=== PATIENT | female | born 1960 | race Caucasian/White ===

== ENCOUNTER 2019-12-07 00:23 | Outpatient (CLI) | payer BC, SELFPAY ==
[2019-12-07 18:55] LABS: SARS-CoV-2 RNA PCR Negative
== END 2019-12-07 00:24 | disposition home or self-care (01) ==
LOC: ANHCOVIDDT 00:23
PROVIDERS: PCP Family Medicine; Visit Provider Internal Medicine Gastroenterology
DX: Z01.818 Encounter for other preprocedural examination (principal); Z11.59 Encounter for screening for other viral diseases
CPT/HCPCS: 87635; C9803; U0003

== ENCOUNTER 2019-12-09 00:46 | Day surgery (SDC) | payer BC, SELFPAY ==
[2019-12-01 14:03] VITALS: BMI 31.1
[2019-12-09 07:36] VITALS: BP 130/82; PULSE 86; RESP 16; TEMP 36.8; O2SAT 100; BMI 31.1
--- NOTE | 2019-12-09 07:40 | WPDANESEPPF ---
Anes - Initial Pre Proc Eval Procedure: Operation Date: 12/09/19 08:30 Proposed Procedures p Screening Colonoscopy - Adelso Perdomo MD Date/Time: 12/09/19 07:40 Surgeon: Adelso Perdomo MD Pre Op Diagnosis: Neoplasm Screening Patient Data Age: 59 Gender: F Height: 1.65 m Weight: 85 kg Last Vital Signs Temp 36.8 C 12/09/19 07:36 Pulse 86 12/09/19 07:36 Resp 16 12/09/19 07:36 BP 130/82 12/09/19 07:36 Pulse Ox 100 12/09/19 07:36 Allergies Allergy/AdvReac Type Severity Reaction Status Date / Time No Known Allergies Allergy Verified 12/09/19 07:35 Home Medications Medication Instructions Recorded Confirmed Type escitalopram oxalate 5 mg PO DAILY 12/01/19 12/01/19 History hydrochlorothiazide 12.5 mg PO DAILY PRN 12/01/19 12/01/19 History levothyroxine 112 mcg PO DAILY 12/01/19 12/01/19 History vitamin B complex [B 1 tablet PO DAILY 12/01/19 12/01/19 History Complex-Vitamin B12] Patient hx anesthesia problems: none Family hx anesthesia problems: none PMFSH Past Medical History Medical History (Updated 12/09/19 @ 07:42 by Medhat Dsouza MD) Anemia HTN (hypertension) Hypothyroidism Obesity Family History Family History (Updated 09/20/16 @ 23:56 by DOCTOR UNKNOWN) Father Hypertension Family history of chronic obstructive pulmonary disease Family history of diabetes mellitus in first degree relative Family history of lung cancer, Onset Age: 78 Family history of coronary artery disease Patient's father is Mother Hypertension Other Diabetes mellitus Family history of Alzheimer's disease Family history of anemia Family history of arthritis Family history of cardiovascular disease Family history of migraine headaches Family history of thyroid disease Social History Social History Smoking status: Never smoker Alcohol intake: never Anes - Eval Final PreProcedure Day of Procedure 12/09/19 07:40 Patient weight: obese Heart: regular rate and rhythm Lungs: clear to auscultation and normal air movement Airway: Mallampati scale class II Neurological: alert and oriented Last oral intake: >/= 8 hours ASA classification: II Emergent: no Anesthetic plan: proceed Anesthesia type and monitoring: general GIVS Informed Consent: The patient's anesthetic plan and its attendant risks and benefits were discussed with the patient/family/POA. Questions were solicited and answers provided to the satisfaction of the patient/family/POA.
[2019-12-09] MEDS: LACTATED RINGERS 1,000 ML 150 ML IV CONT (07:50)
--- NOTE | 2019-12-09 07:56 | PM.HPGS ---
History of Present Illness History of Present Illness Consent: Risks, benefits, and alternatives have been discussed and questions answered. Patient agrees to proceed with procedure. Chief complaint: Neoplasm Screening Narrative: Radha Gray is a 59 year old W female referred for screening colonoscopy. Patient is asymptomatic. No family history of colo rectal cancer. Patient did have a colonoscopy over 88 years ago which was normal. [facility] Past Medical History Medical History Anemia HTN (hypertension) Hypothyroidism Obesity Surgical History Surgical History (Updated 12/09/19 @ 07:58 by Adelso Perdomo MD) S/P right rotator cuff repair Status post arthroscopy of right knee Status post hysterectomy Status post unilateral salpingo-oophorectomy Family History Family History Father Hypertension Family history of chronic obstructive pulmonary disease Family history of diabetes mellitus in first degree relative Family history of lung cancer, Onset Age: 78 Family history of coronary artery disease Patient's father is Mother Hypertension Other Diabetes mellitus Family history of Alzheimer's disease Family history of anemia Family history of arthritis Family history of cardiovascular disease Family history of migraine headaches Family history of thyroid disease Social History Social History Smoking status: Never smoker Alcohol intake: never Meds Home Medications and Allergies Home Medications Medication Instructions Recorded Confirmed Type escitalopram oxalate 5 mg PO DAILY 12/01/19 12/01/19 History hydrochlorothiazide 12.5 mg PO DAILY PRN 12/01/19 12/01/19 History levothyroxine 112 mcg PO DAILY 12/01/19 12/01/19 History vitamin B complex [B 1 tablet PO DAILY 12/01/19 12/01/19 History Complex-Vitamin B12] Allergies Allergy/AdvReac Type Severity Reaction Status Date / Time No Known Allergies Allergy Verified 12/09/19 07:35 Vital Signs Vital Signs - 24 hr 12/09/19 07:36 Temperature 36.8 C Pulse Rate 86 Respiratory Rate 16 Blood Pressure 130/82 Pulse Oximetry 100 Exam Const: Orientation/consciousness: patient oriented x3 Resp: Auscultation: clear to auscultation bilaterally Cardio: Rate: regular rate Rhythm: regular rhythm Heart sounds: no murmurs GI: GI Palp: Yes Soft to palpation, No Tenderness to palpation present (GI), Yes No hepatosplenomegaly present and No Palpable mass present Auscultation: normal bowel sounds Neuro: General: patient oriented x3 and no focal motor deficits Extrem: General: no pedal edema Assessment and Plan Additional Plan screening colonoscopy in average risk patient
[2019-12-09] MEDS: SIMETHICONE ORAL SUSPENSION 20 MG/0.3 ML 30 ML BOTTLE 0.6 ML IRRIGATION (08:43)
[2019-12-09 08:52] VITALS: BP 116/72; PULSE 86; RESP 19; O2SAT 98
[2019-12-09 09:02] VITALS: BP 118/76; PULSE 75; RESP 19; O2SAT 98
[2019-12-09 09:08] VITALS: BP 121/80; PULSE 72; RESP 19; O2SAT 98
== END 2019-12-09 09:28 | disposition home or self-care (01) ==
PROVIDERS: PCP Family Medicine; Visit Provider Internal Medicine Gastroenterology
PROC: 0DJD8ZZ Inspection of Lower Intestinal Tract, Via Natural or Artificial Opening Endoscopic (ICD-10-PCS; CPT 45378; principal; 2019-12-09 08:30)
DX: Z12.11 Encounter for screening for malignant neoplasm of colon (principal); K64.8 Other hemorrhoids; I10 Essential (primary) hypertension; E03.9 Hypothyroidism, unspecified; E66.9 Obesity, unspecified; Z68.31 Body mass index [BMI] 31.0-31.9, adult
CPT/HCPCS: G0121; J2704; J7120

== ENCOUNTER → 2020-02-29 07:25 | Outpatient (CLI) | payer BC, SELFPAY ==
--- NOTE | ~2020-02-29 | MM_ITS ---
EXAMINATION: MM screening warren BI w juan HISTORY: Screening mammogram TECHNIQUE: Craniocaudal and mediolateral oblique 3-D tomosynthesis images were obtained and synthetic 2-D images were generated. CAD analysis was submitted and interpreted. COMPARISON: 01/06/2019 bilateral diagnostic digital mammogram 06/17/2018 diagnostic right digital mammogram 05/28/2018, 02/19/2017, 02/06/2016 bilateral digital screening mammogram examinations BREAST PARENCHYMAL COMPOSITION: FINDINGS: Approximately 4.5 x 7 x 9.5 mm mass is noted in the upper inner quadrant of the right breas t at mid depth. Diagnostic right mammogram and right breast ultrasound examination are recommended. There is asymmetry in the upper outer left breast. Diagnostic left mammogram is recommended. Otherwise there is no evidence of suspicious mass, calcification, or architectural distortion to sugg est malignancy in either breast. There has been no suspicious interval change. IMPRESSION: 1. 9.5 mm mass in upper inner quadrant right breast at mid depth 2. Diagnostic bilateral mammogram and right breast ultrasound examination are recommended. BI-RADS Category 0: Incomplete: Needs additional imaging evaluation. Reviewed, dictated and finalized at location A. IMPRESSION: 1. 9.5 mm mass in upper inner quadrant right breast at mid depth 2. Diagnostic bilateral mammogram and right breast ultrasound examination are r ecommended. BI-RADS Category 0: Incomplete: Needs additional imaging evaluation.
== END ==
PROVIDERS: PCP Family Medicine; Visit Provider Family Medicine
DX: Z12.31 Encounter for screening mammogram for malignant neoplasm of breast (principal); R92.8 Other abnormal and inconclusive findings on diagnostic imaging of breast
CPT/HCPCS: 77063; 77067

== ENCOUNTER → 2020-03-22 07:53 | Outpatient (CLI) | payer BC, SELFPAY ==
--- NOTE | ~2020-03-22 | MMUS_ITS ---
EXAMINATION: MM diagnostic mammo BI, US breast BI complete HISTORY: Follow-up bilateral breast masses TECHNIQUE: Additional 3-D tomosynthesis images of the breasts were performed and synthetic 2-D images were generated. CAD analysis was submitted and interpreted. High resolution bilateral breast ultraso und was performed. COMPARISON: Comparison to multiple prior studies sequentially, with oldest reviewed study dated 11/2016. BREAST PARENCHYMAL COMPOSITION: The breasts are heterogenously dense, which may obscure small masses. FINDINGS: MAMMOGRAPHIC FINDINGS: There is a benign-appearing 1 cm mass in the upper inner quadrant of the right breast, middle third. There are multiple small masses scattered throughout the left breast which are obscured by fibrogland ular tissue. ULTRASOUND: Complete bilateral breast ultrasound: At 1:00, 6 cm from the nipple there is a cluster of microcysts measuring up to 1 cm in aggregate. This corresponds to the mammographic finding. In the left breast t here are multiple simple and complicated cysts including a cluster of microcysts at 3:00, 6 cm from t he nipple measuring 6 mm in aggregate. There are no suspicious sonographic abnormalities to suggest m alignancy. IMPRESSION: 1. No evidence for malignancy in either breast. Benign findings. 2. Routine yearly screening mammogram and regular clinical breast examination are recommended. BI-RADS Category 2: Benign finding(s). Reviewed, dictated and finalized at location A. IMPRESSION: 1. No evidence for malignancy in either breast. Benign findings. 2. Routine yearly screening mammogram and regular clinical breast examination a re recommended. BI-RADS Category 2: Benign finding(s).
== END ==
PROVIDERS: PCP Family Medicine; Visit Provider Family Medicine
DX: N63.10 Unspecified lump in the right breast, unspecified quadrant (principal); R92.2 Inconclusive mammogram
CPT/HCPCS: 76641; 77066

== ENCOUNTER → 2021-03-16 08:49 | Outpatient (CLI) | payer BC, SELFPAY ==
--- NOTE | ~2021-03-16 | MMUS_ITS ---
EXAMINATION: MM diagnostic warren BI w juan, US breast RT complete, US breast LT limited HISTORY: Palpable breast lumps TECHNIQUE: Additional 3-D tomosynthesis images of the breasts were performed and synthetic 2-D images were generated. CAD analysis was submitted and interpreted. High resolution complete right and limit ed left breast ultrasound was performed. COMPARISON: Comparison to multiple prior studies sequentially, with oldest reviewed study dated 11/2016. BREAST PARENCHYMAL COMPOSITION: Breast composed of scattered areas of fibroglandular density. FINDINGS: MAMMOGRAPHIC FINDINGS: The breasts are stable. No new masses, calcifications or architectural distortion in either breast to suggest malignancy. Bilateral breast asymmetries are unchanged. ULTRASOUND: Complete right and limited left breast ultrasound: Normal heterogeneous echotexture without focal lila id or cystic mass. IMPRESSION: 1. No evidence for malignancy in either breast. 2. Routine yearly screening mammogram and regular clinical breast examination are recommended. BI-RADS Category 1: Negative Reviewed, dictated and finalized at location A. IMPRESSION: 1. No evidence for malignancy in either breast. 2. Routine yearly screening mammogram and regular clinical breast examination a re recommended. BI-RADS Category 1: Negative IMPRESSION: 1. No evidence for malignancy in either breast. 2. Routine yearly screening mammogram and regular clinical breast examination a re recommended. BI-RADS Category 1: Negative
== END ==
PROVIDERS: PCP Family Medicine; Visit Provider Family Medicine
DX: N63.10 Unspecified lump in the right breast, unspecified quadrant (principal); N63.20 Unspecified lump in the left breast, unspecified quadrant
CPT/HCPCS: 76641; 76642; 77062; 77066; G0279

== ENCOUNTER 2021-10-05 18:12 | Emergency (ER) | payer BC, SELFPAY ==
[2021-10-05 18:19] VITALS: BP 127/78; PULSE 88; RESP 16; TEMP 37.1; O2SAT 98
--- NOTE | 2021-10-05 18:54 | ED.EAR ---
HPI - Ear Problem General Chief complaint: Ear Stated complaint: Loss of hearing in right ear Time Seen by Provider: 10/05/21 18:54 Source: patient Mode of arrival: ambulatory Limitations: no limitations History of Present Illness HPI Narrative: 60-year-old female presents with complaint of pain and decreased hearing to right ear. Reports that she has had sinus issues for the past week. Did see her PCP and is taking Benadryl and Augmentin. Was told at that time that right ear looks slightly infected. States over the last 2 days pain has been worse and intermittently dizzy. PCP was going to prescribe an oral steroid but patient needed to come into the office and patient started new job and did not want to miss work. Denies fever chills. All systems reviewed and negative except as noted above. Related Data Home Medications Medication Instructions Recorded Confirmed vitamin B complex [B 1 tablet PO DAILY 12/01/19 10/05/21 Complex-Vitamin B12] amoxicillin-pot clavulanate 1 tablet PO BID 10/05/21 10/05/21 celecoxib 100 mg PO DIRECTED 10/05/21 10/05/21 fluticasone propionate 50 mcg INTRANASAL BID 10/05/21 10/05/21 gabapentin 100 mg PO DIRECTED 10/05/21 10/05/21 lorazepam 0.5 mg PO DIRECTED 10/05/21 10/05/21 Allergies Allergy/AdvReac Type Severity Reaction Status Date / Time No Known Allergies Allergy Verified 10/05/21 18:28 Review of Systems Review of Systems: CONSTITUTIONAL: Denies fever, chills, or sweats. EYES: Denies visual changes, redness, or discharge. ENT: Denies rhinorrhea, congestion, sore throat. Reports right ear pain and decreased hearing. CARDIOVASCULAR: Denies chest pain, palpitations, or edema. RESPIRATORY: Denies cough or dyspnea. GASTROINTESTINAL: Denies abdominal pain, nausea, vomiting, or diarrhea. GENITOURINARY: Denies dysuria or hematuria. SKIN: Denies rash or itching. MUSCULOSKELETAL: Denies back pain, joint pain, or myalgia. NEUROLOGIC: Denies headache, numbness, or weakness. PSYCHIATRIC: Denies anxiety or depression. All other systems reviewed are negative, except as documented in HPI. [facility] Past Medical History Medical History (Updated 10/05/21 @ 19:04 by Senia Valderrama NP) Anemia HTN (hypertension) Hypothyroidism Obesity Surgical History Surgical History (Updated 12/09/19 @ 07:58 by Adelso PerdomoMD) S/P right rotator cuff repair Status post arthroscopy of right knee Status post hysterectomy Status post unilateral salpingo-oophorectomy Family History Family History Father Hypertension Family history of chronic obstructive pulmonary disease Family history of diabetes mellitus in first degree relative Family history of lung cancer, Onset Age: 78 Family history of coronary artery disease Patient's father is Mother Hypertension Other Diabetes mellitus Family history of Alzheimer's disease Family history of anemia Family history of arthritis Family history of cardiovascular disease Family history of migraine headaches Family history of thyroid disease Social History Social History Smoking status: Never smoker Alcohol intake: never Comments At time of signature, agree with nursing past medical, surgical, social and family history. There is no relevant family history pertinent to the presenting complaint. Exam Narrative: GENERAL: This is a well-nourished, well-developed patient, in no apparent distress. HEAD: normocephalic, atraumatic. EYES: PERRL. Sclera clear/white. Vision is grossly intact. EARS: External ears normal, auditory canals clear and without drainage. Left TM is normal. There is yellow serous fluid to right TM with mild erythema. NOSE: External nose normal with no obvious nasal discharge, nares without redness, no rhinorrhea. THROAT: Mucous membranes moist, posterior pha
== END 2021-10-05 19:06 | disposition home or self-care (01) ==
PROVIDERS: Emergency Provider Nurse Practitioner Family
DX: H65.01 Acute serous otitis media, right ear (principal); I10 Essential (primary) hypertension; E03.9 Hypothyroidism, unspecified; E66.9 Obesity, unspecified; Z68.29 Body mass index [BMI] 29.0-29.9, adult
CPT/HCPCS: 99213; G0463

== ENCOUNTER → 2022-04-25 14:10 | Outpatient (CLI) | payer BC, SELFPAY ==
--- NOTE | ~2022-04-25 | MM_ITS ---
EXAMINATION: MM screening warren BI w juan HISTORY: Screening mammogram TECHNIQUE: Craniocaudal and mediolateral oblique 3-D tomosynthesis images were obtained and synthetic 2-D images were generated. CAD analysis was submitted and interpreted. COMPARISON: 03/16/2021 Limited left and complete right breast ultrasound examination 03/16/2021 bilateral diagnostic mammogram 03/22/2020 bilateral complete breast ultrasound 03/22/2020 bilateral diagnostic mammogram 02/29/2020 bilateral screening mammogram 01/02/2019 diagnostic bilateral mammogram and Limited bilateral breast ultrasound 06/17/2018 diagnostic right mammogram and limited right breast ultrasound 05/28/2018 bilateral screening mammogram BREAST PARENCHYMAL COMPOSITION: There are scattered areas of fibroglandular density. FINDINGS: Stable bilateral fibroglandular asymmetry since 05/28/2018. There is no evidence of suspici ous mass, calcification, or architectural distortion to suggest malignancy in either breast. There darby s been no suspicious interval change. IMPRESSION: 1. No mammographic evidence of malignancy. 2. Recommend routine screening mammography in one year. BI-RADS Category 1: Negative Reviewed, dictated and finalized at location A. [employer]
--- NOTE | ~2022-04-25 | DEXA_ITS ---
Bone Density Report Name: JAIR MARTINES Age: 61 Sex: Female Ethnicity: White Date of : 1960 Indication: postmenopausal; screening for osteoporosis; height loss; hysterectomy; Referring Provider: Liz, Bridget Study: Bone densitometry was performed. Exam Date: April 25, 2022 Accession number: [id number] Bone Density: Region BMD T-score Z-score Classification AP Spine (L1-L4) 1.327 2.5 4.0 Normal Femoral Neck (Left) 0.924 0.7 2.0 Normal Total Hip (Left) 0.990 0.4 1.4 Normal Femoral Neck (Right) 0.926 0.7 2.0 Normal Total Hip (Right) 1.032 0.7 1.7 Normal Total Hip Mean 1.011 0.6 1.6 Normal World Health Organization criteria for BMD impression classify patients as: Normal (T-score at or above -1.0), Osteopenia (T-score between -1.0 and -2.5), or Osteoporosis (T-score at or below -2.5). 10-year Fracture Risk: FRAX not reported because: All T-scores for Spine Total, Hip Total, Femoral Neck at or above -1.0 Previous Exams: Region Exam Age BMD T-score BMD Change BMD Change Date g/cm2 vs Baseline vs Previous AP Spine(L1-L4) 04/25/2022 61 1.327 2.5 -0.062* -0.062* 12/03/2012 51 1.389 3.1 Total Hip(Left) 04/25/2022 61 0.990 0.4 -0.037* -0.037* 12/03/2012 51 1.027 0.7 Total Hip(Right) 04/25/2022 61 1.032 0.7 -0.048* -0.048* 12/03/2012 51 1.080 1.1 *Denotes significance at 95% confidence level, LSC for AP Spine = 0.022 g/cm2, LSC for Total Hip = 0.027 g/cm2 Clinical Information Provided by Patient: Has used the following medications: Vitamin D, MTV Has the following medical conditions: Hysterectomy Patient maximum height was 65.5 Menopause Age: 44 Drinks caffeinated beverages Onset of menses at age 13 Number of children 4 Impression: The patient has normal bone mass. The BMD for the AP Spine(L1-L4) decreased, changing by -0.062 since the last DXA exam. The BMD for the Total Hip(Left) decreased, changing by -0.037 since the last DXA exam. The BMD for the Total Hip(Right) decreased, changing by -0.048 since the last DXA exam. Discussion: BONE DENSITY IS ABOVE THE MINIMUM DESIRABLE LEVEL AT ALL SKELETAL SITES TESTED. This patient?s bone mineral density is above the minimum desirable level (T-score -1.0 or better) at all sites measured. The patient should follow a healthful lifestyle (good nutrition with adequate calcium and vitamin D, and appropriate weight-be
== END ==
PROVIDERS: PCP Family Medicine; Visit Provider Family Medicine
DX: Z12.31 Encounter for screening mammogram for malignant neoplasm of breast (principal); Z13.820 Encounter for screening for osteoporosis; Z78.0 Asymptomatic menopausal state
CPT/HCPCS: 77063; 77067; 77080

== ENCOUNTER 2022-07-10 08:27 | Outpatient (CLI) | payer BC, SELFPAY ==
--- NOTE | ~2022-07-10 | XR_ITS ---
EXAMINATION: XR lg joint inject/asp w image DATE: 07/10/2022 09:32 INDICATION: Left hip arthritis. TECHNIQUE: A time-out was performed to verify the patient's name, date of , and procedure to b e performed. The procedure including the risks, benefits, and alternatives was discussed with the pat ient. Risks discussed included bleeding and infection. The patient understood the risks and agreed to proceed. The skin overlying the left hip joint was prepped and draped in usual sterile fashion. An esthetic was administered with 1% lidocaine subcutaneously. A 22 G needle was advanced under fluoros copic guidance into the joint. Subsequently, injectate consisting of 2 mL 0.5% bupivacaine and 1 mL 80 mg/mL Depo-Medrol was instilled. The needle was removed and the entry site was cleaned and dresse d. There were no immediate complications. Fluoroscopy exposure time was 0.1 minutes. The total numbe r of images was 1. FINDINGS: Real-time fluoroscopy demonstrates the needle in the left hip joint. Patient's pain prior t o procedure:12/23. Patient's pain following the procedure: 11/23. IMPRESSION: 1. Fluoroscopy guided left hip joint injection of local anesthetic and steroid with decrease in the p atient's presenting pain. Reviewed, dictated and finalized at location A. [employer] IMPRESSION: 1. Fluoroscopy guided left hip joint injection of local anesthetic and steroid with decrease in the patient's presenting pain.
== END 2022-07-10 08:28 | disposition home or self-care (01) ==
PROVIDERS: PCP Family Medicine; Visit Provider Nurse Practitioner Family
DX: M16.12 Unilateral primary osteoarthritis, left hip (principal)
CPT/HCPCS: 20610; 77002; J1040

== ENCOUNTER 2022-10-15 07:46 | Outpatient (CLI) | payer BC, SELFPAY ==
--- NOTE | ~2022-10-15 | XR_ITS ---
EXAMINATION: XR lg joint inject/asp w image DATE: 10/15/2022 08:34 INDICATION: Left hip arthritis. TECHNIQUE: A time-out was performed to verify the patient's name, date of , and procedure to b e performed. The procedure including the risks, benefits, and alternatives was discussed with the pat ient. Risks discussed included bleeding and infection. The patient understood the risks and agreed to proceed. The skin overlying the left hip joint was prepped and draped in usual sterile fashion. An esthetic was administered with 1% lidocaine subcutaneously. A 22 G needle was advanced under fluoros copic guidance into the joint. Subsequently, injectate consisting of 2 mL 0.5% bupivacaine and 1 mL 80 mg/mL Depo-Medrol was instilled. The needle was removed and the entry site was cleaned and dresse d. There were no immediate complications. Fluoroscopy exposure time was 0.1 minutes. The total numbe r of images was 1. FINDINGS: Real-time fluoroscopy demonstrates the needle in the left hip joint. Patient's pain prior t o procedure:4/10. Patient's pain following the procedure: 0/10. IMPRESSION: 1. Fluoroscopy guided left hip joint injection of local anesthetic and steroid with decrease in the p atient's presenting pain. Reviewed, dictated and finalized at location A. IMPRESSION: 1. Fluoroscopy guided left hip joint injection of local anesthetic and steroid with decrease in the patient's presenting pain.
== END 2022-10-15 07:47 | disposition home or self-care (01) ==
PROVIDERS: PCP Family Medicine; Visit Provider Nurse Practitioner Family
DX: M16.12 Unilateral primary osteoarthritis, left hip (principal)
CPT/HCPCS: 20610; 77002; J1040

== ENCOUNTER 2022-11-15 12:45 | Outpatient (CLI) | payer BC, SELFPAY ==
--- NOTE | ~2022-11-15 | US_ITS ---
EXAMINATION: US soft tissue abdomen DATE: 11/15/2022 13:18 INDICATION: Right upper quadrant abdominal mass. TECHNIQUE: Multiple grayscale and Doppler ultrasound images of the abdomen were obtained. COMPARISON: None. FINDINGS: There is no abnormal mass in the right upper quadrant in the patient's area of concern. IMPRESSION: 1. No abnormal body wall mass in the right upper quadrant in the patient's area of concern. Reviewed, dictated and finalized at location A.
== END 2022-11-15 12:46 ==
LOC: MICIMG 12:46
PROVIDERS: PCP Family Medicine
DX: M79.89 Other specified soft tissue disorders (principal)
CPT/HCPCS: 76705

== ENCOUNTER → 2022-11-27 08:14 | Outpatient (CLI) | payer BC, SELFPAY ==
--- NOTE | ~2022-11-27 | XR_ITS ---
XR hip LT min 2V 11/28/2022 11:37 Indication: Osteoarthritis of the left hip Procedure: 2 views left hip Comparison: 06/27/2022 Findings: There is severe osteoarthritis of the left hip. No fracture or traumatic malalignment. No s oft tissue abnormality. No foreign body. Impression: 1: Progression of severe osteoarthritis of the left hip. Reviewed, dictated and finalized at location L. Impression: 1: Progression of severe osteoarthritis of the left hip.
== END ==
PROVIDERS: PCP Internal Medicine; Visit Provider Internal Medicine
DX: M45.0 Ankylosing spondylitis of multiple sites in spine (principal); M46.1 Sacroiliitis, not elsewhere classified; G47.01 Insomnia due to medical condition; M16.12 Unilateral primary osteoarthritis, left hip
CPT/HCPCS: 73502

== ENCOUNTER 2022-12-06 20:02 | Emergency (ER) | payer BC, SELFPAY ==
--- NOTE | ~2022-12-06 | XR_ITS ---
EXAM: XR hip LT 2V w AP pelvis DATE: 12/06/2022 21:58 HISTORY: hip pain, NO INJURY . COMPARISON: 11/27/2022. FINDINGS: Normal mineralization. No fracture or dislocation. No lytic or blastic lesion. Degenerativ e lumbar disc disease. Moderate right and mild left hip osteoarthritis. Moderate osteitis pubis. No e rosion or periosteal change. Surgical staple line in the right pelvis. IMPRESSION: No acute osseous finding in the pelvis or left hip. Reviewed, dictated and finalized at location K.
--- NOTE | ~2022-12-06 | XR_ITS ---
EXAM: XR knee LT min 4V DATE: 12/06/2022 21:58 HISTORY: knee pain . COMPARISON: None available. FINDINGS: Normal mineralization. No fracture or dislocation. No lytic or blastic lesion. Moderate le ft knee osteoarthritis. No erosion or periosteal change. Soft tissues within normal limits. IMPRESSION: No acute osseous finding in the left knee. Reviewed, dictated and finalized at location K.
[2022-12-06 20:39] VITALS: BP 146/80; PULSE 91; RESP 18; TEMP 36.6; O2SAT 100
--- NOTE | 2022-12-06 21:41 | ED.EXTPRO ---
HPI - Extremity Problem General Chief complaint: Extremity Problem,Nontraumatic Stated complaint: L hip pain Time Seen by Provider: 12/06/22 21:20 History of Present Illness HPI Narrative: 62-year-old female presented emerged department for evaluation of worsening left hip pain. Patient does have a prior history of osteoarthritis and is currently following up with Dr. Perkins for anticipated left hip replacement. Patient does take tramadol for pain control. Patient reports that she is getting out of the car she had increased pain of the left hip. Patient last took tramadol at 1 PM. Patient denies any specific fall or injury. Patient states the pain radiates from her hip to her knee. Related Data Home Medications Medication Instructions Recorded Confirmed celecoxib 100 mg capsule 100 mg PO DIRECTED 10/05/21 10/22/21 fluticasone propionate 50 50 mcg intranasal BID 10/05/21 10/22/21 mcg/actuation nasal spray,suspension gabapentin 100 mg capsule 100 mg PO DIRECTED 10/05/21 10/22/21 lorazepam 0.5 mg tablet 0.5 mg PO DIRECTED 10/05/21 10/22/21 hydrochlorothiazide 12.5 mg tablet 12.5 mg PO DAILY 10/22/21 10/22/21 levothyroxine 112 mcg capsule 112 mcg PO DAILY 10/22/21 10/22/21 Allergies Allergy/AdvReac Type Severity Reaction Status Date / Time No Known Allergies Allergy Verified 06/27/22 13:30 Review of Systems Review of Systems: All systems reviewed & are unremarkable except as noted in HPI and below PMFSH Past Medical History Medical History Anemia Arthritis Degenerative joint disease of left hip HTN (hypertension) Hypothyroidism Obesity Surgical History Surgical History History of eye surgery History of knee replacement S/P right rotator cuff repair Status post arthroscopy of right knee Status post hysterectomy Status post unilateral salpingo-oophorectomy Family History Family History Father Hypertension Family history of chronic obstructive pulmonary disease Family history of diabetes mellitus in first degree relative Family history of lung cancer, Onset Age: 78 Family history of coronary artery disease Patient's father is Diabetes mellitus Family history of cardiovascular disease Mother Hypertension Family history of thyroid disease Grandparent Diabetes mellitus Family history of cardiovascular disease Sibling Diabetes mellitus Hypertension Family history of cardiovascular disease Family history of thyroid disease Other Family history of Alzheimer's disease Family history of anemia Family history of arthritis Family history of migraine headaches Social History Social History Smoking status: Never smoker Alcohol intake: current Living arrangements: alone Occupation/Education: occupation 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 HEAD: normocephalic, atraumatic. EYES: PERRLA/EOMI, conjunctivae clear. NECK: Supple. No adenopathy, no masses. RESPIRATORY: Airway patent, respirations nonlabored. Clear to auscultation bilaterally, no rales, rhonchi, wheezing. CARDIOVASCULAR: Regular rate and rhythm without murmurs rubs or gallops. ABDOMINAL: Soft, nontender, nondistended, normal bowel sounds MUSCULOSKELETAL: Pain with movement of the left hip, tenderness of left knee NEURO: Alert. Cranial nerves II through XII intact. Grossly intact SKIN: Warm, dry. Normal Color Course Course Emergency Course: 62-year-old female presented the ED for evaluation of left hip and left knee pain. Patient denies any falls or injuries. X-ray showed no acute fracture or dislocation. Patient was provided medications for pain control including IM Toradol
[2022-12-06] MEDS: CYCLOBENZAPRINE HCL 10 MG TABLET PO (21:42)
[2022-12-06] MEDS: HYDROcodone/acetaminophen (*CRX) 5-325 MG TABLET 1 TAB PO (21:43)
[2022-12-06 23:09] VITALS: BP 132/74; PULSE 90; RESP 15; O2SAT 98
== END 2022-12-06 23:10 | disposition home or self-care (01) ==
PROVIDERS: Emergency Provider Emergency Medicine
DX: M25.552 Pain in left hip (principal); M19.90 Unspecified osteoarthritis, unspecified site; I10 Essential (primary) hypertension; E03.9 Hypothyroidism, unspecified
CPT/HCPCS: 73502; 73564; 99284; A9270

== ENCOUNTER 2023-01-21 17:20 | Outpatient (CLI) | payer BC, SELFPAY ==
[2023-01-21 17:49] LABS: Basophils Percent Auto 0.3 % (0.2-1.2); Eosinophils Absolute Auto 0.1 K/mm3 (0-0.3); Eosinophils Percent Auto 1.9 % (0-4.4); Hemoglobin 10.7 g/dL (12.0-15.0); Immature Granulocyte Absolute 0.01 K/mm3 (0.00-0.031); Immature Granulocyte Percent A 0.2 % (0-0.5); Lymphocytes Absolute Auto 2.54 K/mm3 (0.9-3.2); Lymphocytes Percent Auto 40.1 % (18.3-44.2); Mean Corpuscular HGB Conc 32.4 g/dl (32-36); Mean Corpuscular Hemoglobin 33.1 pg (26-34); Mean Corpuscular Volume 102.2 fl (80-100); Mean Platelet Volume 9.3 fl (7.4-10.4); Monocytes Absolute Auto 0.7 K/mm3 (0.1-0.6); Monocytes Percent Auto 10.4 % (2.6-8.5); Neutrophils Percent Auto 47.1 % (45.5-73.1); Platelet Count Result 376 k/mm3 (150-375); Red Blood Count 3.23 M/mm3 (4.2-5.4); Red Cell Distribution Width 13.9 % (11.5-14.5); White Blood Count 6.3 K/mm3 (4.5-10.0)
[2023-01-21 17:59] LABS: Anion Gap 3 mmol/L (8-16); Blood Urea Nitrogen 12 mg/dL (7-17); Calcium 9.1 mg/dL (8.4-10.2); Carbon Dioxide 28 mmol/L (22-30); Chloride 102 mmol/L (98-107); Estimated Glomerular Filt Rate > 60; Glucose 102 mg/dL (65-110); Potassium 3.6 mmol/L (3.4-5.0); Sodium 133 mmol/L (137-145)
[2023-01-21 18:03] LABS: Appearance Urine Cloudy (Clear); Bacteria Urine 1+ /hpf; Bilirubin Urine Negative (Negative); Color Urine Dark Yellow (Yellow); Glucose Urine UA Negative (Negative); Ketones Urine Trace mg/dL (Negative); Leukocyte Esterase Ur 3+ LEU/UL (Negative); Mucus Urine Present /lpf; Nitrate Urine Negative (Negative); Protein Urine Negative (Negative); Squamous Epithelial Cell Urine Few /hpf (Few); Urobilinogen Urine 0.2 mg/dL (<2.0); WBC Urine >100 /hpf; pH Urine 5.5 (5.0-9.0)
[2023-01-21 18:23] LABS: Add Urine Microscopic? YES
== END 2023-01-21 17:21 | disposition home or self-care (01) ==
LOC: ANHLAB 17:22
PROVIDERS: Visit Provider Orthopaedic Surgery
DX: M16.12 Unilateral primary osteoarthritis, left hip (principal); I10 Essential (primary) hypertension
CPT/HCPCS: 36415; 80048; 81001; 85025; 87086; 87088

== ENCOUNTER 2023-02-25 11:57 | Outpatient (CLI) | payer BC, SELFPAY ==
[2023-02-25 13:32] LABS: Basophils Percent Auto 0.4 % (0.2-1.2); Eosinophils Absolute Auto 0.2 K/mm3 (0-0.3); Eosinophils Percent Auto 3.3 % (0-4.4); Hematocrit 35.2 % (37.0-47.0); Hemoglobin 11.2 g/dL (12.0-15.0); Immature Granulocyte Absolute 0.01 K/mm3 (0.00-0.031); Immature Granulocyte Percent A 0.2 % (0-0.5); Lymphocytes Absolute Auto 2.26 K/mm3 (0.9-3.2); Lymphocytes Percent Auto 41.8 % (18.3-44.2); Mean Corpuscular HGB Conc 31.8 g/dl (32-36); Mean Corpuscular Volume 103.8 fl (80-100); Mean Platelet Volume 9.4 fl (7.4-10.4); Monocytes Absolute Auto 0.6 K/mm3 (0.1-0.6); Monocytes Percent Auto 10.4 % (2.6-8.5); Neutrophils Absolute Auto 2.4 K/mm3 (1.3-6.7); Neutrophils Percent Auto 43.9 % (45.5-73.1); Platelet Count Result 390 k/mm3 (150-375); Red Blood Count 3.39 M/mm3 (4.2-5.4); White Blood Count 5.4 K/mm3 (4.5-10.0)
[2023-02-25 13:38] LABS: Appearance Urine Clear (Clear); Bacteria Urine Rare /hpf; Bilirubin Urine Negative (Negative); Blood Urine Trace (Negative); Color Urine Yellow (Yellow); Glucose Urine UA Negative (Negative); Ketones Urine Trace mg/dL (Negative); Leukocyte Esterase Ur 1+ LEU/UL (Negative); Nitrate Urine Negative (Negative); Non Pathogenic Casts 0-2; Protein Urine Negative (Negative); Specific Grav Ur 1.031 (1.001-1.035); Squamous Epithelial Cell Urine Few /hpf (Few); Urobilinogen Urine 0.2 mg/dL (<2.0)
[2023-02-25 13:42] LABS: Albumin Level 4.5 g/dL (3.5-5.1); Anion Gap 6 mmol/L (8-16); Blood Urea Nitrogen 21 mg/dL (7-17); Calcium 9.3 mg/dL (8.4-10.2); Carbon Dioxide 28 mmol/L (22-30); Chloride 104 mmol/L (98-107); Estimated Glomerular Filt Rate > 60; Glucose 85 mg/dL (65-110); Potassium 4.3 mmol/L (3.4-5.0); Sodium 138 mmol/L (137-145)
[2023-02-25 13:43] LABS: Urine Cotinine NEGATIVE
[2023-02-25 13:44] LABS: Partial Thromboplastin Time 28.7 SECONDS (22.3-36.8)
[2023-02-25 14:38] LABS: Add Urine Microscopic? YES
== END 2023-02-25 11:58 | disposition home or self-care (01) ==
LOC: ANHSURGERY 12:02
PROVIDERS: PCP Family Medicine; Visit Provider Orthopaedic Surgery
DX: Z01.812 Encounter for preprocedural laboratory examination (principal); M16.12 Unilateral primary osteoarthritis, left hip
CPT/HCPCS: 80048; 80307; 81001; 82040; 83036; 85025; 85610; 85730; 87081; 87086

== ENCOUNTER 2023-03-12 00:53 | Day surgery (SDC) | payer BC, SELFPAY ==
--- NOTE | 2023-02-25 11:35 | PC.NURSE ---
PRE-OP INSTRUCTIONS, PLEASE READ CAREFULLY Report to the Outpatient Waiting Room, entrance under the green pavilion located off [facility], at time _0600_ on date _03/12/23_. Planned Procedure Time: _0730_. PACK A SMALL OVERNIGHT BAG AND LEAVE IN THE CAR ALONG WITH YOUR WALKER Time changes happen often and if your time is changed the preop area will call you the afternoon before. - You and your visitor will be asked to self-screen and do not enter if you have any COVID symptoms. - A mask is optional within the hospital at this time. -VISITING HOURS 8AM-8PM Patients may have clear liquids (water, carbonated beverages, clear teas, apple juice) until 3 hours prior to surgery (0430 AM) with a maximum of 20 ounces. - No food from midnight until time of surgery Take the following medications with a SIP of water the morning of surgery: _ LEVOTHYROXINE, & LORAZEPAM, TYLENOL, TRAMADOL IF NEEDED _ DO NOT STOP ANY OF YOUR OTHER PRESCRIPTION MEDICATIONS PRIOR TO SURGERY ?EXCEPT THE FOLLOWING Medications to discontinue per DR. CHAN - _DICLOFENAC_, Date to take last dose_CALL OFFICE FOR INSTRUCTIONS_ Medications to discontinue per ANESTHESIA - VITAMINS/SUPPLEMENTS 3 DAYS PRIOR TO SURGERY, Date to take last dose 03/08/23_ Please no make-up, nail sri [place]ank[place], hairspray, perfume, deodorant, or body powder the day of surgery. No jewelry (including any body piercings) or valuables the day of surgery, leave them at home. Please take a shower or bath the night before, or the morning of, surgery with an antibacterial soap. Wear comfortable, loose fitting clothing. - Jewelry must be removed prior to entering the operating room. Rings and piercings that are not removed may be cut off. - The hospital will not accept responsibility for valuables. - Please leave all valuables, including medications, at home the day of surgery. If you are going home after surgery, a licensed trash truck driver must drive you home. - NO public transportation without another adult if you receive anesthesia. - We recommend that an adult stay with you for 24 hours following discharge. - We also recommend that you do not drive, make important decision, drink alcoholic beverages, or take any drugs that were not prescribed by your health care provider for at least 24 hours after your discharge time. Follow any additional instructions given to you from your surgeon. If you or anyone in your household have experienced Covid symptoms in the past week, please notify your surgeon or the nurse liaison at the phone number below for possible testing. Instructions given to _PATIENT_and asked if any additional questions and then verbalized understanding. Patient advised to call surgeon office or pre surgery nurse liaison [phone] if any additional questions.
[2023-02-25 12:24] VITALS: BP 144/84; PULSE 86; RESP 18; TEMP 37.1; O2SAT 99; BMI 28.0
[2023-03-12] VITALS (19 sets, daily range): BP systolic 101–153; BP diastolic 53–99; PULSE 90–109; RESP 12–20; TEMP 36.3–37.7; O2SAT 96–100
--- NOTE | ~2023-03-12 | XR_ITS ---
EXAMINATION: XR hip LT 1V DATE: 03/12/2023 11:16 INDICATION: Total left hip arthroplasty. TECHNIQUE: A single view of left hip was obtained. COMPARISON: Left hip radiographs 03/06/2023 FINDINGS: There is a total left hip arthroplasty in near-anatomic alignment. No fracture. There is ga s in the soft tissues, consistent with recent surgery. IMPRESSION: 1. Total left hip arthroplasty in near-anatomic alignment. Reviewed, dictated and finalized at location E.
[2023-03-12] MEDS: ACETAMINOPHEN 500 MG TABLET 1000 MG PO (06:46)
[2023-03-12] MEDS: LACTATED RINGERS 1,000 ML 30 ML IV CONT ×2 (06:58→10:58)
[2023-03-12] MEDS: TRANEXAMIC ACID 1,000MG/ISO100 1,000 MG/100 ML BAG 200 MG IVPB (07:00)
--- NOTE | 2023-03-12 07:05 | WPDANESEPPF ---
Anes - Initial Pre Proc Eval Procedure: Operation Date: 03/12/23 07:30 Proposed Procedures p Left Total Hip Arthroplasty - Yifan Perkins MD Date/Time: 03/12/23 07:05 Surgeon: Yifan Perkins MD Pre Op Diagnosis: left hip djd Patient Data Age: 62 Gender: F Height: 1.63 m Weight: 74.2 kg Last Vital Signs Temp 37.1 C 02/25/23 12:24 Pulse 86 02/25/23 12:24 Resp 18 02/25/23 12:24 BP 144/84 H 02/25/23 12:24 Pulse Ox 99 02/25/23 12:24 O2 Del Method Room Air 02/25/23 12:24 Allergies Allergy/AdvReac Type Severity Reaction Status Date / Time No Known Drug Allergies Allergy Unknown Unknown Verified 03/06/23 11:44 Home Medications Medication Instructions Recorded Confirmed Type lorazepam 0.5 mg tablet 0.5 mg PO DIRECTED PRN Anxiety 10/05/21 03/06/23 History hydrochlorothiazide 12.5 mg tablet 12.5 mg PO DAILY PRN SWELLING OF 10/22/21 03/06/23 History FEET levothyroxine 112 mcg capsule 112 mcg PO DAILY 10/22/21 03/06/23 History tramadol 50 mg tablet 100 mg PO BID 12/18/22 03/06/23 History acetaminophen 500 mg tablet 1,000 mg PO BID 02/25/23 03/06/23 History ascorbic acid (vitamin C) 500 mg 500 mg PO DAILY 02/25/23 03/06/23 History tablet (Vitamin C) caffeine 200 mg tablet 200 mg PO DAILY 02/25/23 03/06/23 History cholecalciferol (vitamin D3) 25 25 mcg PO DAILY 02/25/23 03/06/23 History mcg (1,000 unit) tablet cod liver oil 1 cap DAILY 02/25/23 03/06/23 History diclofenac sodium 75 mg 75 mg PO BID 02/25/23 03/06/23 History tablet,delayed release folic acid 1 mg tablet 1 mg PO DAILY 02/25/23 03/06/23 History zinc 50 mg capsule 50 mg PO DAILY 02/25/23 03/06/23 History chlorhexidine gluconate 4 % 1 applic topical DAILY #237 mL 03/03/23 03/06/23 Rx topical liquid (Hibiclens) Patient hx anesthesia problems: none Family hx anesthesia problems: none Results Review: All pre-operative results and documents have been reviewed as part of the pre-operative evaluation. [facility] Past Medical History Medical History Anemia Arthritis Degenerative joint disease of left hip HTN (hypertension) Hypothyroidism Obesity Surgical History Surgical History History of eye surgery History of knee replacement S/P right rotator cuff repair Status post arthroscopy of right knee Status post hysterectomy Status post unilateral salpingo-oophorectomy Family History Family History Father Hypertension Family history of chronic obstructive pulmonary disease Family history of diabetes mellitus in first degree relative Family history of lung cancer, Onset Age: 78 Family history of coronary artery disease Patient's father is Diabetes mellitus Family history of cardiovascular disease Mother Hypertension Family history of thyroid disease Grandparent Diabetes mellitus Family history of cardiovascular disease Sibling Diabetes mellitus Hypertension Family history of cardiovascular disease Family history of thyroid disease Other Family history of Alzheimer's disease Family history of anemia Family history of arthritis Family history of migraine headaches Social History Social History Smoking status: Never smoker Second hand tobacco smoke exposure: No Additional smoking assessment comments: PT DENIES ALL FORMS OF TOBACCO USE Alcohol intake: current Drinks per week: 2 Substance use: never Substance use type: does not use Living arrangements: alone Additional living arrangements comments: SON (PILY [phone]) TEMPORARY STAYING WITH PT Occupation/Education: occupation 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
--- NOTE | 2023-03-12 07:14 | WPDHPUPDATE1 ---
History and Physical Update Update Date/Time: 03/12/23 07:14 History and Physical has been reviewed, including an updated exam of the patient. There are NO changes in the patient's condition. Risks, benefits, and alternatives have been discussed and questions answered. Patient agrees to proceed with procedure.
[2023-03-12] MEDS: ceFAZolin 2 GM/D5W 50 ML 2 GM/50 ML BAG IVPB ×2 (07:39→16:45)
[2023-03-12] MEDS: VANCOMYCIN 1,250 MG/NS 250 ML 1,250 MG/250 ML BAG 250 MG IVPB (09:50)
[2023-03-12] MEDS: TRANEXAMIC ACID 1,000 MG/10 ML AMPUL 1000 MG IV PUSH (10:05)
--- NOTE | 2023-03-12 11:02 | W.PM.PROC2 ---
Procedure Note - Detailed Date of Procedure 03/12/23 Pre-op Diagnosis left hip djd Post-op Diagnosis Same Procedure Performed L ELISHA Surgeon Yifan Perkins MD Anesthesia General Description of Procedure THE PATIENT WAS TAKEN TO THE OPERATING ROOM IN STABLE CONDITION AND WAS PLACED IN THE LATERAL DECUBITUS AND THE LEFT LOWER EXTREMITY WAS PREPPED AND DRAPED IN THE STERILE FASHION. INCISION WAS MADE IN THE POSTERIOR LATERAL SIDE OF THE HIP, DOWN TO THE FASCIA LAYER. THE FASCIA WAS INCISED. THE HIP WAS EXPOSED. THE SHORT EXTERNAL ROTATORS WERE EXPOSED. THE SCIATIC NERVE WAS IDENTIFIED. INCISION WAS MADE THROUGH THE SHORT EXTERNAL ROTATORS AND THE CAPSULE OF THE HIP JOINT. THE HIP WAS DISLOCATED. AN OSTEOTOMY WAS MADE TO THE FEMORAL NECK ABOUT 1 CM PROXIMAL TO THE LESSER TROCHANTER. THE ACETABULUM WAS EXPOSED. THERE WAS SEVERE DJD SEEN. BEGINNING WITH A 44 REAMER THE ACETABULUM WAS REAMED TO 51 MM. A 51 MM TRIAL WAS PLACED IN 35 DEG OF ABDUCTION AND ANTEVERSION WAS IN ALIGNMENT WITH THE TRANS ACETABULAR LIGAMENT. THE FIT WAS EXCELLENT. THE TRIAL WAS REMOVED. A 52 MM BIOMET G7 COMPONENT WAS THEN TAPPED IN TO PLACE IN 35 DEG OF ABDUCTION AND ANTEVERSION IN ALIGNMENT WITH THE TRANSVERSE ACETABULAR LIGAMENT. THE FIT WAS EXCELLENT. 2 SCREWS WERE PLACED WITH GOOD BITES. THE ACETABULAR DUAL MOBILITY LINER TRIAL WAS PLACED AND CHECKED FOR STABILITY. NEXT THE FEMUR WAS PREPARED WITH INITIAL CANAL FINDER THEN SEQUENTIAL BROACHING WITH A TAPERLOC HIP SYSTEM, UNTIL A 6 BROACH FIT WELL IN 15 OF ANTEVERSION. A 0 HIGH OFFSET NECK WITH DUAL MOBILITY HEAD TRIAL WAS PLACED. THE SHUCK TEST WAS EXCELLENT AND THE STABILITY IN FLEXION AND ROTATION WAS EXCELLENT. LEG LENGTHS WERE GROSSLY EQUAL. TRIALS WERE REMOVED. THE DUAL MOBILITY ACETABULAR LINER WAS TAPPED INTO PLACE AND WAS STABLE. NEXT A BIOMET TAPERLOC #6 STEM WAS PLACED WITH A HIGH OFFSET NECK THE FIT WAS EXCELLENT IN 15 DEG OF ANTEVERSION. A DUAL MOBILITY CERAMIC AND POLYETHYLENE LINER WAS PLACED AND THEN REDUCED. THE HIP WAS TRIALED AND THE STABILITY WAS EXCELLENT WERE THE LEG LENGTHS AND THE SHUCK TEST. THE WOUND WAS IRRIGATED WITH STERILE BETADINE AND WATER FOR 3 MIN. THEN WASHED AGAIN. THE CAPSULE AND THE EXTERNAL ROTATORS WERE APPROXIMATED WITH NUMBER 1 VICRYL. THE FASCIA WITH No 2 QUIL AND THE SUB CUTANEOUS LAYER WITH 2-0 ABSORBABLE SUTURE WITH A RUNNING 3-0 SUBCUTICULAR LAYER WELL. DERMABOND WAS PLACED AND STERILE DRESSING WAS APPLIED. PATIENT WAS PLACED BACK ON TO THE SUPINE POSITION AND WAS EXTUBATED Estimated Blood Loss 100 Complications No immediate complications Condition Stable Disposition PACU
[2023-03-12] MEDS: KETOROLAC 30 MG/ML VIAL (*BKC) IV PUSH (11:04)
[2023-03-12] MEDS: fentaNYL CITRATE INJ (*CRX) 100 MCG/2 ML VIAL 25 MCG IV PUSH ×8 (11:14→11:32)
[2023-03-12] MEDS: HYDROmorphone HCL INJ (*CRX) 1 MG/ML SYR 0.5 MG IV PUSH ×4 (11:39→11:55)
[2023-03-12] MEDS: PROPARACAINE HCL 0.5% 15 ML OPHTH SOLN 1 DROP EACH EYE (12:03)
[2023-03-12] MEDS: MIDAZOLAM HCL (*CRX) 2 MG/2 ML VIAL 1 MG IV PUSH ×2 (12:17→12:46)
--- NOTE | 2023-03-12 13:20 | ADMGEN ---
This patient, Radha Gray, was admitted to [address] [place] [address] Room 310-01. Patient/family oriented to hospital policies and general routines including ID bracelet, bed and alarms, visiting hours, pain management, procedures, bathroom and other care routines, personal items, smoking policy, room service/diet, and visiting hours. Information on how to activate the Rapid Response Team has been discussed. Patient/Family are encouraged to report perceived risks to care and to ask questions if they do not understand what they are told or what they should do.
[2023-03-12] MEDS: SODIUM CHLORIDE 0.9% IV 1,000 ML 125 ML IV CONT (14:03)
[2023-03-12] MEDS: DICLOFENAC SODIUM 0.1% OPHTH SOLN 2.5 ML BOTTLE 1 DROP EACH EYE ×2 (14:04→21:09)
[2023-03-12] MEDS: KETOROLAC 15 MG/ML VIAL (*BKC) IV PUSH ×2 (14:04→17:33)
--- NOTE | 2023-03-12 14:41 | PCPTNOTE ---
Attempted PT evaluation, pt refused due to pain and requested therapist return in an hour. Pt states she was given pain medication ~15 mins ago. Will follow.
[2023-03-12] MEDS: SENNA/DOCUSATE SODIUM TABLET 2 TAB PO (16:45)
[2023-03-12] MEDS: HYDROcodone/acetaminophen (*CRX) 7.5-325 MG TABLET 2 TAB PO (18:38)
[2023-03-12] MEDS: FAMOTIDINE 20 MG TABLET PO (20:06)
[2023-03-12] MEDS: diazePAM (*CRX) 5 MG TABLET PO (20:06)
[2023-03-12] MEDS: ASPIRIN 325 MG ENTERIC TABLET PO (20:07)
[2023-03-13] MEDS: ceFAZolin 2 GM/D5W 50 ML 2 GM/50 ML BAG IVPB ×2 (00:26→08:39)
[2023-03-13] MEDS: KETOROLAC 15 MG/ML VIAL (*BKC) IV PUSH ×2 (00:26→05:31)
[2023-03-13 01:49] VITALS: BP 125/64; PULSE 102; RESP 16; TEMP 37.5; O2SAT 95
[2023-03-13] MEDS: LEVOTHYROXINE SODIUM 112 MCG TABLET PO (05:31)
[2023-03-13] MEDS: DICLOFENAC SODIUM 0.1% OPHTH SOLN 2.5 ML BOTTLE 1 DROP EACH EYE (05:31)
[2023-03-13] MEDS: diazePAM (*CRX) 5 MG TABLET PO (05:31)
[2023-03-13 05:47] VITALS: BP 131/77; PULSE 110; RESP 20; TEMP 36.9; O2SAT 100
[2023-03-13 06:12] LABS: Basophils Percent Auto 0.3 % (0.2-1.2); Eosinophils Percent Auto 0.4 % (0-4.4); Hematocrit 24.3 % (37.0-47.0); Hemoglobin 7.8 g/dL (12.0-15.0); Immature Granulocyte Absolute 0.01 K/mm3 (0.00-0.031); Immature Granulocyte Percent A 0.1 % (0-0.5); Lymphocytes Absolute Auto 1.84 K/mm3 (0.9-3.2); Lymphocytes Percent Auto 25.4 % (18.3-44.2); Mean Corpuscular HGB Conc 32.1 g/dl (32-36); Mean Corpuscular Hemoglobin 33.1 pg (26-34); Mean Platelet Volume 9.7 fl (7.4-10.4); Monocytes Absolute Auto 0.7 K/mm3 (0.1-0.6); Monocytes Percent Auto 10.1 % (2.6-8.5); Neutrophils Absolute Auto 4.6 K/mm3 (1.3-6.7); Neutrophils Percent Auto 63.7 % (45.5-73.1); Platelet Count Result 286 k/mm3 (150-375); Red Blood Count 2.36 M/mm3 (4.2-5.4); Red Cell Distribution Width 12.1 % (11.5-14.5); White Blood Count 7.2 K/mm3 (4.5-10.0)
[2023-03-13 06:24] LABS: Anion Gap 4 mmol/L (8-16); Blood Urea Nitrogen 12 mg/dL (7-17); Calcium 7.9 mg/dL (8.4-10.2); Carbon Dioxide 27 mmol/L (22-30); Chloride 103 mmol/L (98-107); Estimated CRCL calculation 82 ml/min; Estimated Glomerular Filt Rate > 60; Glucose 107 mg/dL (65-110); Potassium 3.6 mmol/L (3.4-5.0); Sodium 134 mmol/L (137-145)
[2023-03-13] MEDS: ASPIRIN 325 MG ENTERIC TABLET PO (08:40)
[2023-03-13] MEDS: ZINC SULFATE 220 MG CAPSULE PO (08:40)
[2023-03-13] MEDS: FAMOTIDINE 20 MG TABLET PO (08:40)
[2023-03-13] MEDS: polyethylene glycoL 3350 17 GM POWD.PACK PO (08:40)
[2023-03-13] MEDS: CHOLECALCIFEROL 1,000 UNITS TABLET 1000 UNITS PO (08:40)
[2023-03-13] MEDS: SENNA/DOCUSATE SODIUM TABLET 2 TAB PO (08:40)
[2023-03-13] MEDS: ASCORBIC ACID 500 MG TABLET PO (08:40)
[2023-03-13] MEDS: HYDROcodone/acetaminophen (*CRX) 7.5-325 MG TABLET 2 TAB PO (08:55)
--- NOTE | 2023-03-13 09:17 | PM.PNORT ---
Progress Note: A&P Assessment and Plan (1) S/P total left hip arthroplasty: Code(s): Z96.642 - Presence of left artificial hip joint Status: Acute Assessment and Plan: POD #1 : Left ELISHA Continue PT/OT. WBAT. Walker. HIGH FALL RISK. Continue pain control. Ice Hip. Protect skin. DVT prophylaxis with Aspirin. SCDs. Incentive Spirometry Use reviewed. Monitor Dressing. Change prior to discharge. Bowel Regimen. Dispo: Home with Home Health pending progress with PT/OT (2) Left arm pain: Code(s): M79.602 - Pain in left arm Status: Acute Assessment and Plan: Patient with complaints of left upper arm pain which has been present x2 months but seems worse since the time of sugery. No reportable injury. Patient has good ROM with FF. Minimal limitations with strength to suggest acute injury. Recommend ice and monitoring at this time. If worsening pain/symptoms, may suggest radiographs while inpatient. Otherwise, we can follow up as an outpatient and she can continue conservative treatment in the interim. Plan Reviewed postoperative labs, vitals and exam with attending MD, Dr. Perkins. Reviewed new complaints of left arm pain as well. Agrees with current plan as indicated above. No further recommendations at this time. Subjective Subjective Date/Time Seen: 03/13/23 09:17 Post Op day: 1 Interval history: POD #1: Left ELISHA Patient with complaints mainly of left arm pain today. The pain is located in the deltoid. This has been present x2 months but seems worse since surgery per patient report. She does not feel the muscle relaxers are working. She complains of minimal hip pain today. Sitting up in the bed, eating breakfast at the time of the exam. Review of Systems Constitutional: Constitutional: Denies chills, Denies fatigue, Denies fever(s), Denies night sweats and Denies weakness Cardiovascular: Cardiovascular: Denies chest pain, Denies lightheadedness, Denies palpitations and Denies dyspnea Respiratory: Respiratory: Denies cough, Denies dyspnea and Denies wheezing Gastrointestinal: Gastrointestinal: Denies abdominal pain, Denies diarrhea, Denies nausea and Denies vomiting Musculoskeletal: Musculoskeletal: Reports arthralgias (left hip ), Reports joint swelling (left hip ) and Denies numbness Neurologic: Denies numbness and Denies weakness Endocrine: Endocrine: Denies fatigue and Denies palpitations Allergic/Immunologic: Allergic/Immunologic: Denies wheezing Exam Const: General: comfortable and no acute distress Orientation/consciousness: patient oriented x3 Limitations: no limitations Resp: Effort & Inspection: normal respiratory effort Cardio: Rate: regular rate Rhythm: regular rhythm GI: Inspection: non-distended Skin: General skin exam: normal color and wounds noted (incision left hip C/D/I ) Wounds: wounds noted (incision left hip C/D/I ) Neuro: General: patient oriented x3 Extrem: Left upper extremity: shoulder/upper arm tenderness of the proximal humerus, of the mid-shaft humerus and over the deltoid bursa; not of the scapula, not over the biceps tendon and not over the subacromial bursa, axillary nerve sensory function normal and abnormal ROM pain with active ROM in ABduction and with range as follows (No limitations with ROM with FF); inspection normal, no swelling, no lacerations and no ecchymosis Left lower extremity: hip/thigh Details: tenderness Location: of the hip Location: laterally and anteriorly, swelling (thigh soft ) Location: of the hip (lateral. ), abnormal ROM (limitations with internal/external rotation and flexion/extension due to recent surgical intervention ) and other (incision lateral hip c/d/i. ), knee Details: normal to inspection and normal ROM; no tenderness and no swelling, lower leg (Negative Krys's Sign ) Details: no edema, ankle (+ankle dorsiflexion/plantarflexion ) Details: normal to inspection, no edema and normal ROM; no tenderness, no swe
--- NOTE | 2023-03-13 10:03 | P.PNAN_ITS ---
Anes - Prog Note Post-Op Date/Time: 03/13/23 10:03 Cardiovascular status: normal Respiratory status: normal Airway patency: baseline Mental status: baseline Post-Op hydration status: normal Vital Signs: Last Vital Signs Temp 36.9 C 03/13/23 05:47 Pulse 110 H 03/13/23 05:47 Resp 20 03/13/23 05:47 BP 131/77 03/13/23 05:47 Pulse Ox 100 03/13/23 05:47 O2 Del Method Room Air 03/13/23 09:00 O2 Flow Rate 2 03/12/23 13:30 Pain Score (VAS): Patient asleep, no nonverbal signs of pain present at this time. I/O: Intake & Output 03/12/23 03/13/23 03/13/23 23:59 07:59 15:59 Intake Total 290 650 400 Balance 290 650 400 Laboratory Tests 03/13/23 05:45 03/13/23 05:45 03/13/23 05:45 WBC 7.2 RBC 2.36 L Hgb 7.8 L D Hct 24.3 L MCV 103.0 H MCH 33.1 MCHC 32.1 RDW 12.1 Plt Count 286 MPV 9.7 Immature Gran % (Auto) 0.1 Neut % (Auto) 63.7 Lymph % (Auto) 25.4 [place] % (Auto) 10.1 H Eos % (Auto) 0.4 Baso % (Auto) 0.3 Lymph # (Auto) 1.84 [place] # (Auto) 0.7 H Eos # (Auto) 0.0 Baso # (Auto) 0.0 Abs Immat Gran (auto) 0.01 Absolute Neuts (auto) 4.6 Absolute Nucleated RBC 0.0 Nucleated RBC % 0.0 Sodium 134 L Potassium 3.6 Chloride 103 Carbon Dioxide 27 Anion Gap 4 L BUN 12 D Creatinine 0.60 L Estim Creat Clear Calc 82 Estimated GFR > 60 Glucose 107 Calcium 7.9 L Post-procedural complaints: none Patient Feedback: Patient satisfied with anesthetic care.
[2023-03-13 10:52] VITALS: BP 115/58; PULSE 106; RESP 20; TEMP 36.9; O2SAT 99
[2023-03-13 11:01] VITALS: BMI 27.4
[2023-03-13] MEDS: ACETAMINOPHEN 325 MG TABLET 650 MG PO (13:43)
[2023-03-13] MEDS: CYCLOBENZAPRINE HCL 10 MG TABLET PO (13:43)
--- NOTE | 2023-03-13 13:46 | PM.DS ---
DS: Admitting Diagnosis Discharge Date 03/13/23 Admitting Diagnosis Left Hip DJD DS: Discharge Diagnosis Discharge Diagnosis (1) S/P total left hip arthroplasty: Code(s): Z96.642 - Presence of left artificial hip joint Status: Acute Assessment and Plan: POD #1 : Left ELISHA Continue PT/OT. WBAT. Walker. HIGH FALL RISK. Continue pain control. Ice Hip. Protect skin. DVT prophylaxis with Aspirin. SCDs. Incentive Spirometry Use reviewed. Monitor Dressing. Change prior to discharge. Bowel Regimen. Dispo: Home with Home Health pending progress with PT/OT (2) Left arm pain: Code(s): M79.602 - Pain in left arm Status: Acute Assessment and Plan: Patient with complaints of left upper arm pain which has been present x2 months but seems worse since the time of sugery. No reportable injury. Patient has good ROM with FF. Minimal limitations with strength to suggest acute injury. Recommend ice and monitoring at this time. If worsening pain/symptoms, may suggest radiographs while inpatient. Otherwise, we can follow up as an outpatient and she can continue conservative treatment in the interim. Plan Reviewed postoperative labs, vitals and exam with attending MD, Dr. Perkins. Reviewed new complaints of left arm pain as well. Agrees with current plan as indicated above. No further recommendations at this time. DS: Summary Hospital Course Reason for hospitalization: Left ELISHA Hospital Course: 62 year old female admitted s/p Left ELISHA for postoperative medical management, pain control and mobilization with PT/OT. Patient progressed well with PT/OT. Pain and vitals remained stable throughout. HgB dropped to 7.8 postoperatively. Rechecked prior to discharge and HgB stable at 7.8. No signs of hematoma. The patient has been cleared to be discharged home with home health at this time. Will have recheck CBC in 1 week. All discharge care instructions reviewed at depth. New medications reviewed. Follow up planned for 3 weeks in the outpatient orthopedic clinic with Dr. Perkins. Status at Discharge Functional status at discharge: uses cane/walker Overall status at discharge: patient is progressing back to baseline Time Spent with Patient Time attestation: Total time spent providing and/or coordinating discharge services: Exam Const: General: comfortable and no acute distress Orientation/consciousness: patient oriented x3 Limitations: no limitations Resp: Effort & Inspection: normal respiratory effort Cardio: Rate: regular rate Rhythm: regular rhythm GI: Inspection: non-distended Skin: General skin exam: normal color and wounds noted (incision left hip C/D/I ) Wounds: wounds noted (incision left hip C/D/I ) Neuro: General: patient oriented x3 Extrem: Left upper extremity: shoulder/upper arm tenderness of the proximal humerus, of the mid-shaft humerus and over the deltoid bursa; not of the scapula, not over the biceps tendon and not over the subacromial bursa, axillary nerve sensory function normal and abnormal ROM pain with active ROM in ABduction and with range as follows (No limitations with ROM with FF); inspection normal, no swelling, no lacerations and no ecchymosis Left lower extremity: hip/thigh Details: tenderness Location: of the hip Location: laterally and anteriorly, swelling (thigh soft ) Location: of the hip (lateral. ), abnormal ROM (limitations with internal/external rotation and flexion/extension due to recent surgical intervention ) and other (incision lateral hip c/d/i. ), knee Details: normal to inspection and normal ROM; no tenderness and no swelling, lower leg (Negative Krys's Sign ) Details: no edema, ankle (+ankle dorsiflexion/plantarflexion ) Details: normal to inspection, no edema and normal ROM; no tenderness, no swelling and no warmth and foot Details: normal capillary refill, toes with normal ROM, vascular exam Details: dorsalis pedis pulse present and motor-sensory exam light-touch
[2023-03-13 14:28] LABS: Basophils Percent Auto 0.1 % (0.2-1.2); Eosinophils Percent Auto 0.5 % (0-4.4); Hemoglobin 7.8 g/dL (12.0-15.0); Immature Granulocyte Absolute 0.02 K/mm3 (0.00-0.031); Immature Granulocyte Percent A 0.3 % (0-0.5); Lymphocytes Absolute Auto 1.74 K/mm3 (0.9-3.2); Lymphocytes Percent Auto 22.6 % (18.3-44.2); Mean Corpuscular HGB Conc 32.5 g/dl (32-36); Mean Corpuscular Hemoglobin 33.9 pg (26-34); Mean Corpuscular Volume 104.3 fl (80-100); Mean Platelet Volume 9.9 fl (7.4-10.4); Monocytes Absolute Auto 0.6 K/mm3 (0.1-0.6); Monocytes Percent Auto 7.7 % (2.6-8.5); Neutrophils Absolute Auto 5.3 K/mm3 (1.3-6.7); Neutrophils Percent Auto 68.8 % (45.5-73.1); Platelet Count Result 282 k/mm3 (150-375); Red Cell Distribution Width 12.1 % (11.5-14.5); White Blood Count 7.7 K/mm3 (4.5-10.0)
== END 2023-03-13 15:40 | disposition home health service (06) ==
LOC: ANHSURGERY 06:20 → ANH3MEDSUR 13:11
PROVIDERS: Nurse Practitioner Family; PCP Family Medicine; Visit Provider Orthopaedic Surgery
PROC: (CPT 27130; principal; 2023-03-12 07:30)
DX: M16.12 Unilateral primary osteoarthritis, left hip (principal); M79.602 Pain in left arm; I10 Essential (primary) hypertension; E03.9 Hypothyroidism, unspecified
CPT/HCPCS: 27130; 36415; 73501; 80048; 85025; 86850; 86900; 86901; 97110; 97116; 97161; 97165; 97530; 97535; A9270; C1713; J0171; J0690; J1100; J1170; J1885; J2250; J2270; J2405; J2704; J2795; J3010; J3370; J7030; J7120

== ENCOUNTER 2023-03-19 13:13 | Outpatient (NON) | payer BC, SELFPAY ==
[2023-03-19 13:40] LABS: Hematocrit 25.4 % (37.0-47.0); Hemoglobin 7.9 g/dL (12.0-15.0); Mean Corpuscular HGB Conc 31.1 g/dl (32-36); Mean Corpuscular Hemoglobin 33.3 pg (26-34); Mean Corpuscular Volume 107.2 fl (80-100); Mean Platelet Volume 9.6 fl (7.4-10.4); Platelet Count Result 600 k/mm3 (150-375); Red Blood Count 2.37 M/mm3 (4.2-5.4)
== END 2023-03-19 13:14 | disposition home or self-care (01) ==
LOC: HOME HLTH 13:15
PROVIDERS: PCP Family Medicine; Visit Provider Orthopaedic Surgery
DX: D64.9 Anemia, unspecified (principal); E03.9 Hypothyroidism, unspecified; I10 Essential (primary) hypertension; Z47.1 Aftercare following joint replacement surgery; Z96.642 Presence of left artificial hip joint
CPT/HCPCS: 85027

== ENCOUNTER → 2023-05-01 12:00 | Outpatient (CLI) | payer BC, SELFPAY ==
--- NOTE | ~2023-05-01 | MM_ITS ---
EXAMINATION: MM screening [facility] BI w juan HISTORY: Screening mammogram TECHNIQUE: Craniocaudal and mediolateral oblique 3-D tomosynthesis images were obtained and synthetic 2-D images were generated. CAD analysis was submitted and interpreted. COMPARISON: 04/25/2022, 03/16/2021, 03/22/2020, 02/29/2020 BREAST PARENCHYMAL COMPOSITION: There are scattered areas of fibroglandular density. FINDINGS: No suspicious mass, calcification, or architectural distortion are identified in either estefani ast to suggest malignancy. There has been no suspicious interval change. IMPRESSION: 1. No mammographic evidence of malignancy. 2. Recommend routine screening mammography in one year. BI-RADS Category 1: Negative Reviewed, dictated and finalized at location A. INING CHAIR ASSEMBLER
== END ==
PROVIDERS: PCP Family Medicine; Visit Provider Family Medicine
DX: Z12.31 Encounter for screening mammogram for malignant neoplasm of breast (principal)
CPT/HCPCS: 77063; 77067

== ENCOUNTER 2023-12-23 06:54 | Outpatient (CLI) | payer OTHER, SELFPAY ==
--- NOTE | ~2023-12-23 | MR_ITS ---
MRI of the left shoulder Technique: Axial proton-density fat-sat images, coronal proton density fat-sat and T2 fat-sat images, and sagittal T1-weighted and T2 fat-sat images were acquired. Clinical History: Pain Findings: There is moderate AC joint, with hypertrophic change at distal clavicle and small subacromi al spur. Coracoclavicular, coracoacromial, and coracohumeral ligaments are intact. There is moderate supraspinatus and infraspinatus tendinosis, without partial or full-thickness tear of these tendons. Subscapularis tendon is intact, with mild tendinosis. Tendon of long head of the bi ceps is intact, with advanced intra-articular tendinosis. No definite labral tear seen. Inferior glenohumeral ligament is intact. There is moderate glenohumeral joint effusion. There is min imal fluid distention of the subacromial/subdeltoid bursa. No degenerative change of the glenohumeral joint. No muscle atrophy or edema. Impression: Moderate glenohumeral joint effusion, uncertain etiology. Consider joint aspiration as indicated. Moderate rotator cuff tendinosis without partial or full-thickness tear identified. Moderate AC joint degenerative change. Reviewed, dictated and finalized at location . Impression: Moderate glenohumeral joint effusion, uncertain etiology. Consider joint aspira tion as indicated. Moderate rotator cuff tendinosis without partial or full-thickness tear identif ied. Moderate AC joint degenerative change.
== END 2023-12-23 06:55 ==
LOC: MICIMG 06:56
PROVIDERS: PCP Family Medicine; Visit Provider Nurse Practitioner Family
DX: M25.412 Effusion, left shoulder (principal); M75.32 Calcific tendinitis of left shoulder; M75.102 Unspecified rotator cuff tear or rupture of left shoulder, not specified as traumatic; M19.012 Primary osteoarthritis, left shoulder
CPT/HCPCS: 73221

== ENCOUNTER 2024-01-28 07:55 | Outpatient (CLI) | payer OTHER, SELFPAY ==
--- NOTE | ~2024-01-28 | MMUS_ITS ---
EXAMINATION: MM diagnostic [facility] BI w juan, US breast BI complete HISTORY: Left breast pain TECHNIQUE: Additional 3-D tomosynthesis images of the breasts were performed and synthetic 2-D images were generated. CAD analysis was submitted and interpreted. High resolution complete bilateral breas t ultrasound was performed. COMPARISON: Comparison to multiple prior studies sequentially, with oldest reviewed study dated 01/06. BREAST PARENCHYMAL COMPOSITION: Not dense: There are scattered areas of fibroglandular density. FINDINGS: MAMMOGRAPHIC FINDINGS: The breast are stable. Bilateral asymmetries in the upper outer quadrants of both breasts are not sig nificantly changed from prior studies. No suspicious calcifications or architectural distortion. ULTRASOUND: Complete US of all 4 quadrants of the breast/s and retroareolar region was reviewed. The right breast is composed of normal heterogeneous echotexture without focal solid or cystic mass. Left breast: At 1:00, 5 cm from the nipple there is a 7 mm cyst. At 1:00, 2 cm from the nipple there is a 3 mm cyst. At 9:00, 5 cm from the nipple there is a 6 mm benign lipoma. IMPRESSION: 1. No evidence for malignancy in either breast. Benign findings. 2. Routine yearly screening mammogram and regular clinical breast examination are recommended. BI-RADS Category 2: Benign finding(s). Reviewed, dictated and finalized at location B. IMPRESSION: 1. No evidence for malignancy in either breast. Benign findings. 2. Routine yearly screening mammogram and regular clinical breast examination a re recommended. BI-RADS Category 2: Benign finding(s).
== END 2024-01-28 07:56 ==
LOC: MICIMG 07:56
PROVIDERS: PCP Family Medicine; Visit Provider Family Medicine
DX: Z12.31 Encounter for screening mammogram for malignant neoplasm of breast (principal); N64.4 Mastodynia
CPT/HCPCS: 76641; 77062; 77066; G0279

== ENCOUNTER 2024-07-20 15:48 | Outpatient (CLI) | payer OTHER, SELFPAY ==
--- OUTSIDE RECORDS SUMMARY | 2024-07-20 15:51 | XMS_ITS | Encounter Summary ---
Author Organization [facility] Health Address [address] [place] [address] Care Team Providers Care Claim Processing Specialist Name Role Phone Vibha Dietrich MD Primary Care Provider + Encounter Details Date Type Department Care Team (Late st Contact Info) Description 05/05/2018 Lab Requisition [facility] Care DermPath Lab [address] [place] [id number] Amada Luis MD [address] [facility] [address] [place] [address] Social History Tobacco Use Types Packs/Day Years Used Date Smoking Tobacco: Never Assessed Sex and Gender Information Value Date Recorded Sex Assigned at Not on file Gender Identity Not on file Sexual Orientation Not on file documented as of this encounter Plan of Treatment Not on file documented as of this encounter Procedures Procedure Name Priority Date/Time Associated Diagnosis Comments DERMATOPATH TECHNICAL REPORT Routine 05/04/2018 12:00 AM CARE ASST documented in this encounter Results * DERMATOPATH TECHNICAL REPORT (05/04/2018 12:00 AM CARE ASST) Case Report Dermatopathology Report ? Case: [id number] ? Authorizing Provider: ??Amada Luis MD ?Collected: ? 05/04/2018 12:00 AM ? Pathologist: ? Shirin Avendano MD ? Received: ?05/05/2018 06:43 AM ? Specimen: ?Skin, right arm ? 1:28 PM [facility] DERMATOPATHOLOGY LABORATORY Clinical History [place] papule R/O DF vs BCC 1:28 PM [facility] DERMATOPATHOLOGY LABORATORY Gross Description Specimen A: Received is one formalin filled container labeled with the patient's name and designated right arm. The specimen consists of a shave biopsy measuring 6x4x1 mm. Jar 0. [facility] Dermatopathology Laboratory performed the technical component only. 1:28 PM [facility] DERMATOPATHOLOGY LABORATORY Embedded Images 1:28 PM [facility] DERMATOPATHOLOGY LABORATORY DISCLAIMER An external and internal positive and negative controls are appropriate for the histochemical, immunohistochemical and immunofluorescence stain(s) in this case (if any), except where stated explicitly. The performance characteristics of the stain(s) cited in this report were developed and its performance characteristic determined by the Dermatopathology Laboratory at [facility]. These tests need not be, and therefore are not, approved by the [place] Food and Drug Administration. The tests are used for clinical purposes. 1:28 PM [facility] DERMATOPATHOLOGY LABORATORY Pathology/Cytolog y TISSUE SPECIMEN FROM SKIN / Unknown 05/04/2018 05/05/2018 6:43 AM [facility] Amada Luis MD LAB - PATHOLOGY/CYTO LOGY ORDERABLES DERMATOPATHOLOGY LABORATORY [facility] - Department of Dermatology [address] [place] [address], 5th Floor Lab [address] [phone] documented in this encounter Visit Diagnoses Not on filedocumented in this encounter Care Teams Claim Processing Specialist Relationship Specialty Start Date End Date Vibha Dietrich MD [address] [facility] [address] [place] [address] PCP - General 11/07/17 documented as of this encounter
--- OUTSIDE RECORDS SUMMARY | 2024-07-20 15:51 | XMS_ITS | Referral Summary ---
Author Organization [facility] Address [address] [place] [address] Care Team Providers Care Membership Sales Representative Name Role Phone Vibha Dietrich MD Primary Care Provider + Source Comments [facility],non-owned Affiliates and Associated Physician Practices is amultiple site organization consisting of ambulatory clinics and hospital sitesin [place], [place], [place] and [place]. This disclosure is being madepursuant to the Care Everywhere program and may not contain all information available regarding this patient. Last updated 18.[facility] Social History Tobacco Use Types Packs/Day Years Used Date Smoking Tobacco: Never Assessed Sex and Gender Information Value Date Recorded Sex Assigned at Not on file Gender Identity Not on file Sexual Orientation Not on file Plan of Treatment Not on file Care Teams Membership Sales Representative Relationship Specialty Start Date End Date Vibha Dietrich MD [address] [place] [address] PCP - General 11/07/17
--- OUTSIDE RECORDS SUMMARY | 2024-07-20 15:51 | XMS_ITS | Clinical Summary ---
Author Organization [facility] Address [address] [place] [address] Care Team Providers Care Group Dynamics Instructor Name Role Phone Unavailable Primary Care Provider Unavailabl e Allergies No known active allergies Medications busPIRone (BUSPAR) 5 mg tablet Take 5 mg by mouth 2 times daily. 07/02/2024 Active traZODone (DESYREL) 50 mg tablet Take 50 mg by mouth daily at bedtime. 06/24/2024 Active levothyroxine 100 mcg tablet Take 100 mcg by mouth daily. Active diclofenac sodium (VOLTAREN) 50 mg Tablet, Delayed Release (E.C.) Take 50 mg by mouth 2 times daily. 07/08/2024 Active hydroCHLOROthiaz tad 12.5 mg tablet Take 12.5 mg by mouth daily. 06/24/2024 Active CAFFEINE CITRATE ORAL Take 100 mg by mouth daily. Active mv-min/vit C/glut/lysine/hb 124 (IMMUNE SUPPORT ORAL) Take by mouth. Active HAIR, SKIN AND NAILS, BIOTIN, ORAL Take by mouth. Active acetaminophen (TYLENOL) 500 mg tablet Take 500 mg by mouth every 6 hours as needed. Active aspirin-acetamin ophen-caffeine (EXCEDRIN EXTRA STRENGTH) 250-250-65 mg Tablet Take 1 Tablet by mouth every 4 hours as needed for Headaches. Active Active Problems No known active problems Encounters Date Type Department Care Team Description 07/20/2024 3:00 PM CERTIFIED RESPIRATORY THERAPIST Office Visit [facility] Oncology and Hematology - [place] [address] [place] [address] Maxime Caldwell MD Chronic anemia (Primary Dx) from Last 3 Months Family History Medical History Relation Name Comments Heart Attack Brother 1 Arrhythmia Brother 2 Pacemaker Brother 2 No Known Problems Brother 3 No Known Problems Child 1 No Known Problems Child 2 No Known Problems Child 3 No Known Problems Child 4 Diabetes Father High Cholesterol Father Hypertension Father Lung Cancer Father No Known Problems Sister Relation Name Status Comments Brother 1 Brother 2 Alive Brother 3 Alive Child 1 Alive Child 2 Alive Child 3 Alive Child 4 Alive Father Mother Alive Sister Alive Social History Tobacco Use Types Packs/Day Years Used Date Smoking Tobacco: Never Smokeless Tobacco: Never Alcohol Use Standard Drinks/Week Comments Yes 0 (1 standard drink = 0.6 oz pur e alcohol) Occasionally Comments Unknown Sex and Gender Information Value Date Recorded Sex Assigned at Not on file Legal Sex Female 11:09 AM CERTIFIED RESPIRATORY THERAPIST Gender Identity Not on file Sexual Orientation Not on file Last Filed Vital Signs Vital Sign Reading Time Taken Comments Blood Pressure 129/76 07/20/2024 3:01 PM CERTIFIED RESPIRATORY THERAPIST Pulse 74 07/20/2024 3:01 PM CERTIFIED RESPIRATORY THERAPIST Temperature 36.4 ??C (97.5 ??F) 07/20/2024 3:01 PM CS T Respiratory Rate 16 07/20/2024 3:01 PM CERTIFIED RESPIRATORY THERAPIST Oxygen Saturation 96% 07/20/2024 3:01 PM CERTIFIED RESPIRATORY THERAPIST Inhaled Oxygen Concentration - - Weight 87.1 kg (192 lb) 07/20/2024 3:01 PM CERTIFIED RESPIRATORY THERAPIST Height 162.6 cm (5' 4 ) 07/20/2024 3:01 PM CERTIFIED RESPIRATORY THERAPIST Body Mass Index 32.96 07/20/2024 3:01 PM CERTIFIED RESPIRATORY THERAPIST Plan of Treatment Upcoming Encounters Date Type Department Care Team (Late st Contact Info) Description 08/05/2024 3:30 PM CERTIFIED RESPIRATORY THERAPIST Office Visit [facility] Oncology and Hematology - [place] [address] [facility] [address] [place] [address] Maxime Caldwell MD [address] [facility] [address] [place] [address] Health Maintenance Due Date Last Done Comments Pre-Diabetes and Diabetes Screening 1960 CERVICAL CANCER SCREENING 12/07/1991 FIT-DNA Q 3 years 2006 FIT/FOBT Q 1 year 2006 Flex Sig/CT Colonography Q 5 years 2006 BREAST CANCER SCREENING 01/07/2020 01/06/2019 ZOSTER VACCINE (2 of 2) 03/28/2022 01/31/2022 INFLUENZA VACCINE (#1) 2024 05/17/2019 Preventative Visit- Commercial 06/16/2024 0 11/11/2023, 01/31/2022, 01/25/2021, Additional history exists DTAP/TDAP/TD VACCINES (2 - T d or Tdap) 12/09/2026 12/09/2016 COLORECTAL SCREENING 12/08/2029 12/09/2019 Colorectal Cancer Screening 12/08/2029 RSV VACCINE (60+ or ) (1 - 1-dose 75+ series) 2036 Insurance [employer] CHOICE POS II
--- OUTSIDE RECORDS SUMMARY | 2024-07-20 15:51 | XMS_ITS | Encounter Summary ---
Author Organization [facility] Address [address] [place] [address] Care Team Providers Care Hospital Supervisor Name Role Phone Unavailable Primary Care Provider Unavailabl e Encounter Details Date Type Department Care Team (Late st Contact Info) Description 07/20/2024 3:00 PM TEXTILE DYER Office Visit [facility] Oncology and Hematology - [place] [address] [facility] [address] [place] [address] Maxime Caldwell MD [address] [facility] [address] [place] [address] Chronic anemia (Primary Dx) Social History Tobacco Use Types Packs/Day Years Used Date Smoking Tobacco: Never Smokeless Tobacco: Never Alcohol Use Standard Drinks/Week Comments Yes 0 (1 standard drink = 0.6 oz pur e alcohol) Occasionally Comments Unknown Sex and Gender Information Value Date Recorded Sex Assigned at Not on file Legal Sex Female 11:09 AM TEXTILE DYER Gender Identity Not on file Sexual Orientation Not on file documented as of this encounter Last Filed Vital Signs Vital Sign Reading Time Taken Comments Blood Pressure 129/76 07/20/2024 3:01 PM TEXTILE DYER Pulse 74 07/20/2024 3:01 PM TEXTILE DYER Temperature 36.4 ??C (97.5 ??F) 07/20/2024 3:01 PM CS T Respiratory Rate 16 07/20/2024 3:01 PM TEXTILE DYER Oxygen Saturation 96% 07/20/2024 3:01 PM TEXTILE DYER Inhaled Oxygen Concentration - - Weight 87.1 kg (192 lb) 07/20/2024 3:01 PM TEXTILE DYER Height 162.6 cm (5' 4 ) 07/20/2024 3:01 PM TEXTILE DYER Body Mass Index 32.96 07/20/2024 3:01 PM TEXTILE DYER documented in this encounter Plan of Treatment Upcoming Encounters Date Type Department Care Team (Late st Contact Info) Description 08/05/2024 3:30 PM TEXTILE DYER Office Visit [facility] Oncology and Hematology - [place] [address] [facility] [address] [place] [address] Maxime Caldwell MD [address] [facility] [address] [place] [address] Scheduled Orders Name Type Priority Associated Diagnoses Orde r Schedule CBC WITH DIFFERENTIAL Lab Stat Chronic anemia Expected: 07/20/2024, Expires: 07/20/2025 COMPREHENSIVE METABOLIC PANEL Lab Stat Chronic anemia Expected: 07/20/2024, Expires: 07/20/2025 FERRITIN Lab Routine Chronic anemia Expected: 07/20/2024, Expires: 07/20/2025 IRON, TIBC, AND PERCENT SATURATION Lab Routine Chronic anemia Expected: 07/20/2024, Expires: 07/20/2025 LACTATE DEHYDROGENASE Lab Routine Chronic anemia Expected: 07/20/2024, Expires: 07/20/2025 METHYLMALONIC ACID Lab Routine Chronic anemia Expected: 07/20/2024, Expires: 07/20/2025 TRANSFERRIN RECEPTOR TFR SOLUBLE Lab Routine Chronic anemia Expected: 07/20/2024, Expires: 07/20/2025 VITAMIN B12 AND FOLATE Lab Routine Chronic anemia Expected: 07/20/2024, Expires: 07/20/2025 PROTEIN ELECTROPHORESIS W/REFLEX,SERUM Lab Routine Chronic anemia Expected: 07/20/2024, Expires: 07/20/2025 TSH Lab Routine Chronic anemia Expected: 07/20/2024, Expires: 07/20/2025 documented as of this encounter Visit Diagnoses Diagnosis Chronic anemia- Primary Anemia, unspecified documented in this encounter
--- OUTSIDE RECORDS SUMMARY | 2024-07-20 15:51 | XMS_ITS | Encounter Summary ---
Author Organization [facility] Facility Care Team Providers Care Lawn Sprinkler Installer Name Role Phone Bridget Hill MD Primary Care Provi marilia Encounter Details Date Type Department Care Team (Latest Contact Info) Description 06/04/2016 Orders Only [facility] CLINCONV ProviderStefano MD [address] [place] [id number] Social History Tobacco Use Types Packs/Day Years Used Date Smoking Tobacco: Never Assessed Alcohol Use Standard Drinks/Week Comments Yes 0 (1 standard drink = 0.6 oz pur e alcohol) Comments Unknown Sex and Gender Information Value Date Recorded Sex Assigned at Not on file Legal Sex Female 10:53 AM BUSINESS PROCESS ARCHITECT Gender Identity Female 01/10/2020 7:05 PM CDT Sexual Orientation Straight 01/10/2020 7: 05 PM CDT documented as of this encounter Plan of Treatment Not on file documented as of this encounter Procedures Procedure Name Priority Date/Time Associated Diagnosis Comments SCAN - LABS 06/05/2016 12:00 AM BUSINESS PROCESS ARCHITECT documented in this encounter Results * SCAN - LABS (06/05/2016 12:00 AM BUSINESS PROCESS ARCHITECT) Narrative 06/05/2016 12:00 AM BUSINESS PROCESS ARCHITECT Ordered by an unspecified provider. Historical Provider Final Res ult documented in this encounter Visit Diagnoses Not on filedocumented in this encounter Care Teams Lawn Sprinkler Installer Relationship Specialty Start Date End Date Bridget Hill MD [address] [place] [address] PCP - General Family Medicine 11/23/18 documented as of this encounter
--- OUTSIDE RECORDS SUMMARY | 2024-07-20 15:51 | XMS_ITS | Clinical Summary ---
Author Organization [facility] Address [address] [place] [address] Phone Care Team Providers Care Funeral Service Practitioner/Embalmer Name Role Phone Bridget Hill MD Primary Care Provider Travis Albrecht MD Unavailable [phone] Allergies No known active allergies Medications levothyroxine (SYNTHROID) 112 MCG Tablet Take 0.112 mcg by mouth daily. 11 06/21/2017 Active Cholecalciferol (VITAMIN D3) 1000 UNIT Tablet Take 2,000 Units by mouth daily. Active Vitamin D-Vitamin K (VITAMIN K2-VITAMIN D3 PO) Take by mouth daily. Active Cod Liver Oil 5000-500 UNIT/5ML Oil Take by mouth daily. Active Flax Oil-Fish Oil-Borage Oil (FISH OIL-FLAX OIL-BORAGE OIL PO) Take by mouth daily. Active celecoxib (CeleBREX) 100 MG Capsule TAKE 1 CAPSULE(100 MG) BY MOUTH TWICE DAILY 08/22/2020 Active hydroCHLOROthiaz tad 12.5 MG Tablet as needed. 07/06/2019 Active LORazepam (ATIVAN) 0.5 MG Tablet as needed. 07/10/2020 Active ferrous sulfate 325 (65 Fe) MG Tablet Take 325 mg by mouth daily. Active B Complex Vitamins (B COMPLEX PO) Take by mouth daily. Active Multiple Vitamins-Mineral s (HAIR SKIN AND NAILS FORMULA PO) Take by mouth daily. Active Acetaminophen (TYLENOL 8 HOUR PO) Take by mouth daily. Active CAFFEINE PO Take by mouth daily. Active Active Problems Problem Noted Date Diagnosed Date Acute blood loss anemia 03/25/2023 Macrocytic anemia 11/01/2020 History of thrombocytosis and anemia 07/02/2018 Positive TIERRA (antinuclear antibody) Resolved Problems Problem Noted Date Diagnosed Date Resolved Date Thrombocytosis 10/13/2017 07/02/2018 Iron overload 09/25/2017 10/13/2017 Normocytic anemia 09/25/2017 07/02/2018 Family History Medical History Relation Name Comments Cancer Father LUNG Diabetes Father Hypertension Father Thyroid Disease Mother Relation Name Status Comments Father Mother Social History Tobacco Use Types Packs/Day Years Used Date Smoking Tobacco: Never Smokeless Tobacco: Never Alcohol Use Standard Drinks/Week Comments No 0 (1 standard drink = 0.6 oz pur e alcohol) Comments No Sex and Gender Information Value Date Recorded Sex Assigned at Not on file Legal Sex Female 11:44 AM CDT Gender Identity Female 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 Sexual Orientation Straight 05/07/2023 9: 34 AM ROLL PRESS 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 Last Filed Vital Signs Vital Sign Reading Time Taken Comments Blood Pressure 130/88 03/19/2022 9:13 AM CDT Pulse 73 03/19/2022 9:13 AM CDT Temperature 36.5 ??C (97.7 ??F) 03/19/2022 9:13 AM CD T Respiratory Rate 17 03/19/2022 9:13 AM CDT Oxygen Saturation 99% 03/19/2022 9:13 AM CDT Inhaled Oxygen Concentration - - Weight 81.7 kg (180 lb 3.2 oz) 03/19/2022 9:13 A M CDT Height 162.6 cm (5' 4 ) 03/19/2022 9:13 AM CDT Body Mass Index 30.93 03/19/2022 9:13 AM CDT Plan of Treatment Health Maintenance Due Date Last Done Comments Hepatitis C Virus (HCV) Screening 1961 Cologuard 12/07/2011 Immunochemical Fecal Occult Blood 12/07/2011 Mammogram 12/07/2011 Pneumococcal Immunization (5 0+ years) (1 of 1 - PCV) 12/07/2011 Hepatitis B Immunization (2 of 3 - 19+ 3-dose series) 02/28/2022 01/31/2022 Zoster Immunization (2 of 2) 03/28/2022 01/31/2022 Influenza Immunization (#1) 2024 05/17/2019 SARS-COV-2 Immunization (3 2023- season) 2024 07/24/2021, 07/03/2021 Colonoscopy 12/08/2029 12/09/2019 Colorectal Cancer Screening 12/08/2029 Respiratory Syncytial Virus (RSV) Immunization (Adult) (1 - 1-dose 75+ series) 2036 12/09/2019 DTaP/Tdap/Td Immunization Discontinued 12/09/2016 TdaP Immunization Completed 12/09/2016 Meningococcal Immunization (ACWY) Aged Out No longer eligible based on patient's age to complete this topic Rotavirus Immunization Aged Out No lo nger eligible based on patient's age to complete this topic Insurance Care Teams Funeral Service Practitioner/Embalmer Relationship Specialty Start Date End Date Bridget Hill MD [address] [place] [address] PCP - General Family Medicine 11/02/20 Travis Albrecht MD [address] [place] [address] Consulting Physician Medical Oncology 03/25/23
--- OUTSIDE RECORDS SUMMARY | 2024-07-20 15:51 | XMS_ITS | Clinical Summary ---
Author Organization [facility] Address [address] [place] [address] Care Team Providers Care Smelter Charger Name Role Phone Vibha Dietrich MD Primary Care Provider + Source Comments [facility],non-owned Affiliates and Associated Physician Practices is amultiple site organization consisting of ambulatory clinics and hospital sitesin [place], [place], [place] and [place]. This disclosure is being madepursuant to the Care Everywhere program and may not contain all information available regarding this patient. Last updated 18.[facility] [employer] Social History Tobacco Use Types Packs/Day Years Used Date Smoking Tobacco: Never Assessed Sex and Gender Information Value Date Recorded Sex Assigned at Not on file Gender Identity Not on file Sexual Orientation Not on file Plan of Treatment Health Maintenance Due Date Last Done Comments COLOGUARD (AGES 45-75) - COL ON CA SCREENING 1961 COLON MONITORING 1961 COLONOSCOPY - COLON CA SCREENING 1961 CT COLONOGRAPHY - COLON CA SCREENING 1961 Colorectal Cancer Screening 1961 FIT - COLON CA SCREENING 1961 FLEX SIG - COLON CA SCREENING 1961 LIPID TESTING 1961 MAMMOGRAM 1961 PAP SMEAR 1961 HIV SCREENING 1976 HEPATITIS C SCREENING 12/02/1979 DTAP/TDAP/TD VACCINES (1 - Tdap) 1980 PNEUMOCOCCAL VACCINE 50+ (1 of 1 - PCV) 12/07/2011 ZOSTER VACCINE (1 of 2) 12/07/2011 COVID-19 VACCINE (1 - 2023-2 5 season) 2024 INFLUENZA VACCINE (#1) 2024 05/17/2019 DEPRESSION SCREENING 06/16/2024 Respiratory Syncytial Virus (RSV) Vaccine Pt: or over 60 yrs (1 - 1-dose 75+ series) 2036 HEPATITIS B VACCINE Aged Out No longe r eligible based on patient's age to complete this topic HIB VACCINE Aged Out No longer eligi ble based on patient's age to complete this topic HPV VACCINE Aged Out No longer eligi ble based on patient's age to complete this topic MENINGOCOCCAL (Group B) VACCINE Aged Out No longer eligible based on patient's age to complete this topic MENINGOCOCCAL VACCINE Aged Out No che nandini eligible based on patient's age to complete this topic PNEUMOCOCCAL VACCINE Aged Out No long er eligible based on patient's age to complete this topic Care Teams Smelter Charger Relationship Specialty Start Date End Date Vibha Dietrich MD [address] [place] [address] PCP - General 11/07/17
--- OUTSIDE RECORDS SUMMARY | 2024-07-20 15:52 | XMS_ITS | Referral Summary ---
Author Organization [address] Address [address] [place] [id number] Care Team Providers Care Upstream Biomanufacturing Technician Name Role Phone Bridget Hill MD Primary Care Provi marilia Encounters Date Type Department Care Team Description 07/02/2024 Orders Only [address] [phone] Bridget Hill MD 06/24/2024 1:45 PM MEMBERSHIP MANAGER Telemedicine [address] [phone] Bridget Hill MD Adjustment insomnia (Primary Dx); Situational anxiety; Elevated blood pressure reading in office without diagnosis of hypertension; Class 1 obesity due to excess calories with serious comorbidity and body mass index (BMI) of 31.0 to 31.9 in adult 05/10/2024 Letter (Out) [address] [phone] 05/05/2024 Letter (Out) [address] [phone] 05/03/2024 Letter (Out) [address] [phone] 05/02/2024 Patient Message [facility] [address] [phone] Bridget Hill MD Toxicologist from Last 3 Months Allergies Active Allergy Reactions Criticality Noted Date Comments Ezetimibe Diarrhea Low 01/28/2023 Medications multivitamin with minerals (HAIR,SKIN AND NAILS ORAL) Take by mouth Active caffeine 200 mg tablet Take 1 tablet (200 mg total) by mouth Active acetaminophen 500 mg capsule Take 2 capsules (1,000 mg total) by mouth 2 (two) times a day Active ELDERBERRY FRUIT ORAL Take 1 tablet by mouth daily Active levothyroxine (SYNTHROID) 100 mcg tabletIndications: Acquired hypothyroidism TAKE 1 TABLET(100 MCG) BY MOUTH DAILY 100 tablet 1 4 Active traZODone (DESYREL) 50 mg tabletIndications: Adjustment insomnia Take 1 tablet (50 mg total) by mouth nightly as needed for sleep 90 tablet 5 025 Active hydroCHLOROthiazid e 12.5 mg tabletIndications: Elevated blood pressure reading in office without diagnosis of hypertension Take 1 tablet (12.5 mg total) by mouth daily 90 tablet 5 Active hydrOXYzine (ATARAX) 25 mg tabletIndications: anxiety Take 1 tablet (25 mg total) by mouth daily as needed for anxiety 30 tablet 1 5 Active busPIRone (BUSPAR) 5 mg tabletIndications: Generalized Anxiety Disorder Take 1 tablet (5 mg total) by mouth 2 (two) times a day 180 tablet 5 Active hydroCHLOROthiazid e (HYDRODIURIL) 12.5 mg tablet TAKE 1 TABLET(12.5 MG) BY MOUTH DAILY 30 tablet 1 3 025 Discontin ued(Reord er) LORazepam (ATIVAN) 0.5 mg tablet TAKE 1 TABLET(0.5 MG) BY MOUTH TWICE DAILY NEEDED FOR ANXIETY 30 tablet 4 025 Discontin ued(Alter yeesnia therapy) Active Problems Problem Noted Date Diagnosed Date Situational anxiety 06/24/2024 Assessment & Plan (06/24/2024 3:27 PM MEMBERSHIP MANAGER): Chronic, persistent The patient does not want daily medication Reviewed the risk of Ativan with addiction and that it is not meant to be used chronically Will do trial of hydroxyzine and trazodone for sleep Update me with how she is doing Call for questions or concerns Acute blood loss anemia 03/25/2023 Assessment & Plan (11/11/2023 7:45 AM CDT): Acute, improving Continue to follow with Hematology Follow-up labs ordered Update me with changes or concerns Elevated blood pressure read ing in office without diagnosis of hypertension 11/05/2022 Assessment & Plan (06/24/2024 3:26 PM MEMBERSHIP MANAGER): Chronic, stable Continue hydrochlorothiazide daily Positive TIERRA (antinuclear antibody) 11/04/2022 11/04/2022 Other fatigue 03/18/2022 Family history of ischemic heart disease 022 Assessment & Plan (11/11/2023 7:46 AM CDT): Chronic, stable Continue healthy lifestyle changes for risk factor reduction Assessment & Plan (01/31/2022 8:23 AM CDT): Will refer cardiology Posterior vitreous detachment of left eye 2020 Assessment & Plan (11/11/2023 7:47 AM CDT): Chronic, improved Managed by Ophthalmology Assessment & Plan (05/04/2021 1:28 PM MEMBERSHIP MANAGER): Low risk for surgery Forms completed Call for questions or concerns Ankylosing spondylitis of multiple sites in spin e 05/04/2021 Assessment & Plan (11/11/2023 7:56 AM CDT): Chronic, persistent Managed by rheumatology Continue current regimen Assessment & Plan (01/31/2022 8:22 AM CDT): Chronic, stable Continue celebrex, gabapentin Assessment & Plan (05/04/2021 1:30 PM MEMBERSHIP MANAGER): david discontinued Continue supportive care Consider gabapetin for pain control Update me for an changes Call for questions Well adult exam 01/25/2021 Overview (11/11/2023): Encouraged a healthy diet, and regular physical activity to her level Health Maintenance: Last PAP: 01/05/19-Neg-s/p hysterectomy for non-cancerous reasons Last mammogram: 05/08- WNL Last colonoscopy: 12/09/2019-repeat in 10 years Last Tdap: 11/2016 Last Shingrix: encouraged Last Flu: encouraged Last COVID: encouraged Assessment & Plan (11/11/2023 7:51 AM CDT): Encouraged a healthy diet, and regular physical activity to her level Health Maintenance: Last PAP: 01/05/19-Neg-s/p hysterectomy for non-cancerous reasons Last mammogram: 05/08- WNL Last colonoscopy: 12/09/2019-repeat in 10 years Last Tdap: 11/2016 Last Shingrix: encouraged Last Flu: encouraged Last COVID: encouraged Assessment & Plan (01/31/2022 8:14 AM CDT): Encouraged a healthy diet, and regular physical activity to her level Wear sun screen, seat belts No texting/drinking and driving Health Maintenance: Last PAP: 01/05/19-Neg Last mammogram: ordered Last colonoscopy: 12/09/2019-repeat in 10 years Last Tdap: 11/2016 Last Shingrix: encouraged Last Flu: encouraged Last COVID: encouraged Assessment & Plan (01/25/2021 2:21 PM CDT): Encouraged a healthy diet, and regular physical activity to her level Wear sun screen, seat belts No texting/drinking and driving Health Maintenance: Last PAP: 01/05/19-Neg Last mammogram: 03/22/2020 Last colonoscopy: 12/09/2019-repeat in 10 years Last Tdap: 11/2016 Last Shingrix: encouraged Last Flu: encouraged Last COVID: encouraged Macrocytic anemia 11/01/2020 Assessment & Plan (11/11/2023 7:46 AM CDT): Chronic, stable Managed by Hematology Assessment & Plan (01/31/2022 8:21 AM CDT): Chronic, stable Continue to follow with oncology Assessment & Plan (01/25/2021 3:39 PM CDT): 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 Gastritis Will refer back to her blood specialist Continue iron Monitor symptoms Call for questions or concerns Hot flashes 05/11/2019 Assessment & Plan (11/11/2023 7:56 AM CDT): Chronic stable Continue to monitor Assessment & Plan (05/11/2019 9:58 AM MEMBERSHIP MANAGER): Will do a trial of effexor Continue to dress in layers Drink cool liquids Avoid spicy foods, alcohol Follow up in 4 weeks Class 1 obesity due to exces s calories with serious comorbidity and body mass index (BMI) of 31.0 to 31.9 in adult 01/05/2019 Assessment & Plan (06/24/2024 3:28 PM MEMBERSHIP MANAGER): Chronic, stable BMI Follow-up includes: Continue healthy lifestyle changes . Assessment & Plan (11/11/2023 7:45 AM CDT): Chronic, slight progression BMI Follow-up includes: nutrition counseling. Assessment & Plan (08/20/2023 8:24 AM MEMBERSHIP MANAGER): BMI Follow-up includes: education provided. Assessment & Plan (01/31/2022 8:24 AM CDT): BMI Follow-up includes: nutrition counseling. Assessment & Plan (01/25/2021 3:42 PM CDT): BMI Follow-up includes: nutrition counseling. Assessment & Plan (01/12/2020 9:42 AM CDT): BMI Follow-up includes: nutrition counseling. Assessment & Plan (01/05/2019 12:13 PM CDT): Reviewed BMI Encouraged to focus on healthy lifestyle changes Insomnia 02/02/2018 Assessment & Plan (06/24/2024 3:26 PM MEMBERSHIP MANAGER): Chronic, uncontrolled Will do a trial of trazodone 50 mg nightly Continue to work on healthy habits for sleep Update me in one month Assessment & Plan (11/11/2023 7:46 AM CDT): Chronic, stable Continue healthy habits for sleep Assessment & Plan (05/04/2021 1:31 PM MEMBERSHIP MANAGER): Nortriptyline discontinued Continue lorazepam as needed Consider gabapentin for pain Call for questions or concerns Assessment & Plan (01/25/2021 3:39 PM CDT): Continue ativan as needed Assessment & Plan (01/12/2020 9:43 AM CDT): Will refer to sleep medicine Assessment & Plan (11/25/2019 1:10 PM CDT): Rarely used Will discontinue Assessment & Plan (10/14/2019 8:19 AM CDT): Continue lunesta Call for questions or concerns Pure hypercholesterolemia 02/02/2018 Assessment & Plan (11/11/2023 7:47 AM CDT): Chronic, stable Follow-up cholesterol labs pending Further guidance once we have the results Assessment & Plan (01/31/2022 8:19 AM CDT): Very high good cholesterol, high TC With family history of heart disease, will refer to cardiology Call for questions Assessment & Plan (01/25/2021 3:40 PM CDT): Continue healthy changes Assessment & Plan (01/12/2020 9:41 AM CDT): CVD score 1.8% Work on healthy changes Call for questions or concerns Assessment & Plan (01/05/2019 10:53 AM CDT): Improved! Continue healthy changes Mixed stress and urge urinary incontinence 12/16 Assessment & Plan (11/11/2023 7:58 AM CDT): Chronic, stable Continue supportive care Continue to work with urology Hypothyroidism 10/23/2016 Assessment & Plan (11/11/2023 7:46 AM CDT): Chronic, stable Continue current dose of levothyroxine Assessment & Plan (01/31/2022 8:22 AM CDT): Chronic, stable Continue current dose Assessment & Plan (01/12/2020 9:40 AM CDT): TSH at goal Continue current regimen Assessment & Plan (05/11/2019 9:58 AM MEMBERSHIP MANAGER): Labs ordered Continue current regimen Assessment & Plan (01/05/2019 10:52 AM CDT): TSH normal Continue current regimen 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 Overview (09/20/2016): OSTEOARTHROS NOS-HAND Resolved Problems Problem Noted Date Diagnosed Date Resolved Date Precordial pain 03/18/2022 11/11/2023 Abnormal EKG 03/18/2022 01/28/2023 Swelling of lower extremity 01/12/2020 07/20/2020 Assessment & Plan (01/12/2020 9:42 AM CDT): Stable Continue current regimen Call for questions or concerns Adjustment disorder with mix ed anxiety and depressed mood 10/14/2019 07/20/2020 Assessment & Plan (01/12/2020 9:40 AM CDT): Continue lorazepam as needed Continue healthy changes for her mood Assessment & Plan (11/25/2019 1:10 PM CDT): Will take lexapro every other day for 1 week, then stop For anxiety, will have her try ativan once as needed Reviewed the risks of the medication-if she needs it more than 2-3 times a week, we will look at daily Update me in 1 month Call for questions or concerns Assessment & Plan (10/14/2019 8:18 AM CDT): Patient reiterated no suicidal thoughts at this time; contact 911 and go to the ER if becomes suicidal Will start lexapro 5 mg daily take medication as directed discussed side effects of medication with patient encouraged healthy diet and exercise encouraged patient to see a counselor use support structures you have in place consider meditation-look at Calm merlin try to work on healthy sleep habits If mood worsens or changes, please contact the office Anything emergent, to the er Well adult exam 01/05/2019 07/20/2020 Assessment & Plan (01/12/2020 9:30 AM CDT): Work on healthy low carb diet Healthy activity for 30 minutes daily Wear sun screen, seat belts No texting/drinking and driving Health Maintenance: Last PAP:01/11/19-negative, Last mammogram: ordered Last DEXA:@60 Last colonoscopy: 12/09/2019-normal, repeat in 10 years Last Tdap:12/09/2016 Last pneumonia/Prevnar:@65 Last Shingrix: encouraged Last Flu: encouraged Assessment & Plan (01/05/2019 10:52 AM CDT): Work on healthy low carb diet Healthy activity for 30 minutes daily Wear sun screen, seat belts No texting/drinking and driving Look into shingrix History of thrombocytosis 07/02/2018 History of anemia 01/22/2018 01/25/2021 History of vitamin D deficiency 08/25/2017 01/25/2021 Nonspecific immunological findings 05/12/2012 07/20/2020 Overview (09/19/2016): OTH UNSPCF NSPF IMUN FND Lower limb joint arthritis 05/12/2012 0 07/20/2020 Overview (09/20/2016): OSTEOARTHROS NOS-L/LEG Immunizations Name Administration Dates Next Due Hep B Vaccine 01/31/2022 Influenza, Quadrivalent, Spl it, Preservative Free, Intramuscular 05/17/2019 Influenza, Unspecified 03/16/2023(Deferr ed: Patient decision),05/27/2022(Deferred: Patient Refused),03/16/2021(Deferred: Patient Refused),03/16/2020(Deferred: Patient Refused) PPD TEST 09/03/2021,03/10/2020 Tdap 12/09/2016 ZOSTER Recombinant 01/31/2022 Social History Tobacco Use Types Packs/Day Years Used Date Smoking Tobacco: Never Passive Smoke Exposure: Never Smokeless Tobacco: Never Tobacco Cessation:Counseling Given: Not Answered Alcohol Use Standard Drinks/Week Comments Yes 2 (1 standard drink = 0.6 oz pur e alcohol) AUDIT-C Answer Date Recorded Q1: How often do you have a drink containing alc ohol? 2-4 times a month 11/11/2023 Q2: How many drinks containi ng alcohol do you have on a typical day when you are drinking? 1 or 2 11/11/2023 Q3: How often do you have si x or more drinks on one occasion? Never 11/11/2023 PHQ-2 Answer Date Recorded PHQ-2 Total Score (If total score is 3 or more points, staff should administer the PHQ-9) 1 06/24/2024 Comments No Sex and Gender Information Value Date Recorded Sex Assigned at Not on file Legal Sex Female 10:53 AM MEMBERSHIP MANAGER Gender Identity Female 01/10/2020 7:05 PM CDT Sexual Orientation Straight 01/10/2020 7: 05 PM CDT Last Filed Vital Signs Vital Sign Reading Time Taken Comments Blood Pressure 122/70 11/11/2023 7:29 AM CDT Pulse 62 11/11/2023 7:29 AM CDT Temperature 37.1 ??C (98.7 ??F) 11/11/2023 7:29 AM CD T Respiratory Rate 16 11/11/2023 7:29 AM CDT Oxygen Saturation 99% 11/11/2023 7:29 AM CDT Inhaled Oxygen Concentration - - Weight 83 kg (183 lb) 06/24/2024 3:27 PM MEMBERSHIP MANAGER Height 162.6 cm (5' 4.02 ) 06/24/2024 3:27 PM CS T Body Mass Index 31.4 06/24/2024 3:27 PM MEMBERSHIP MANAGER Plan of Treatment Not on file Procedures Procedure Name Priority Date/Time Associated Diagnosis Comments MAMMOGRAPHY Routine 05/01/2023 DEXA SCAN Routine 04/25/2022 COLONOSCOPY Routine 12/09/2019 HEPATITIS C ANTIBODY Routine 05/11/2019 10:45 AM MEMBERSHIP MANAGER Need for hepatitis C screening test THINPREP IMAGING PAP AND HPV MRNA E6/E7 REFLEX HPV 16,18/45 Routine 01/05/2019 12:15 PM CDT Encounter for well woman exam with routine gynecological exam from Last 3 Months or Most Recently Relevant to Health Maintenance Results * MAMMOGRAPHY (05/01/2023) Mammography Normal us Historical Provider HEALTH MAINTENANCE Final Result * DEXA SCAN (04/25/2022) us Historical Provider HEALTH MAINTENANCE Final Result * Colonoscopy (12/09/2019) Anatomical Region Laterality Modality Other us Historical Provider ENDOSCOPY PROCEDURES Jocelin l Result * Hepatitis C antibody (05/11/2019 10:45 AM MEMBERSHIP MANAGER) Hep C Ab NONREACT NONREACTIVE [facility] Comment: Siemens QuintesocialaurX using ABDIRASHID (chemiluminescent immunoassay) technology. NONREACTIVE: Antibodies to Hepatitis C not detected. This does not exclude early acute Hepatitis C infection, possibility of exposure to Hepatitis C, antibodies below detection limit, or to lack of antibody reactivity to the antigen used in this assay. EQUIVOCAL: Antibodies to Hepatitis C may or may not be present. ??Sample to be confirmed by real-time PCR method. REACTIVE: Antibodies to Hepatitis C detected.Sample to be confirmed by real-time PCR method. Blood specimen (specimen) 05/11/2019 10:45 AM MEMBERSHIP MANAGER 05/11/2019 10:52 AM MEMBERSHIP MANAGER Narrative Resulting Agency Comment CLI us Bridget Hill MD LAB MICROBIOLOGY - GENERAL ORDERABLES Final Result [facility] [address], [facility] [phone] * ThinPrep Imaging Pap and HPV mRNA E6/E7 Reflex HPV 16,18/45 (01/05/2019 12:15 PM CDT) CLINICAL INFORMATION: [facility] - Comment:Routine exam LMP [facility] Comment:S/P HYSTERECTOMY Previous Pap [facility] Comment:INFORMATION NOT PROV IDED Prev. Bx [facility] - Comment:INFORMATION NOT PROV IDED SOURCE: [facility] Comment: Vagina SWAB Pap, specimen adequacy [facility] Comment:SATISFACTORY FOR [place] HPV interp [facility] Comment:Negative for intraep ithelial lesion or malignancy. COMMENTS [facility] - Comment: This Pap test has been evaluated with computer assisted technology. Bottle Label Inspector [facility] Comment: NANETTE DOHERTY(ASCP) CT screening location: [place] [address] [place] [address] Comment [facility] - Comment: EXPLANATORY NOTE: The Pap is a screening test for cervical cancer. It is not a diagnostic test and is subject to false negative and false positive results. It is most reliable when a satisfactory sample, regularly obtained, is submitted with relevant clinical findings and history, and when the Pap result is evaluated along with historic and current clinical information. Human papillomavirus RNA, High Risk E6/E7 Not Detected Not Detected [facility] [place] Comment: This test was performed using the APTIMA HPV Assay ([employer] This assay detects E6/E7 viral messenger RNA (mRNA) from 14 high-risk HPV types (16,18,31,33,35,39,45,51,52,56,58,59,66,68). The analytical performance characteristics of this assay have been determined by [employer]. The modifications have not been cleared or approved by the FDA. This assay has been validated pursuant to the CLIA regulations and is used for clinical purposes. Swab 01/05/2019 12:1 5 PM CDT 01/06/2019 9:29 AM CDT Narrative [facility] - 01/08/2019 3:56 PM CDT FASTING: UNKNOWN Resulting Agency Comment Performing Organization Information: ?Site ID: [id number] ?Name: [facility] ?Address: [address] [place] [address] [place] [id number] ?Director: Tone Cedillo D.O., DENICE ?Site ID: ?Name: [facility] ?Address: [facility] [place] [address] ?Director: Maria Esther Mayo Bridget Hill MD LAB CYTOLOGY ORDERA BLES Final Result [facility] [place] [place] [facility] [place] from Last 3 Months or Most Recently Relevant to Health Maintenance Insurance [employer] [place] [facility] Care Teams Upstream Biomanufacturing Technician Relationship Specialty Start Date End Date Bridget Hill MD [address] [place] [address] PCP - General Family Medicine 11/23/18
--- OUTSIDE RECORDS SUMMARY | 2024-07-20 15:52 | XMS_ITS | Patient Health Summary ---
Author Organization [facility] Address [address] [place] [address] Care Team Providers Care Bridge/Structure Inspection Team Leader Name Role Phone Vibha Dietrich MD Primary Care Provider + Note from [facility],non-owned Affiliates and Associated Physician Practices is amultiple site organization consisting of ambulatory clinics and hospital sitesin [place], [place], [place] and [place]. This disclosure is being madepursuant to the Care Everywhere program and may not contain all information available regarding this patient. Last updated 18.[facility] Social History Tobacco Use Types Packs/Day Years Used Date Smoking Tobacco: Never Assessed Sex and Gender Information Value Date Recorded Sex Assigned at Not on file Gender Identity Not on file Sexual Orientation Not on file Procedures * XR SI JOINTS 3VW OR MORE(Performed 04/15/2022) Performed for Ankylosing spondylitis of multiple sites in spine ([facility]), Sacroiliitis ([facility]), Insomniadue to medical condition * XR LUMBAR SPINE 2 OR 3VW(Performed 04/15/2022) Performed for Ankylosing spondylitis of multiple sites in spine ([facility]), Sacroiliitis ([facility]), Insomniadue to medical condition * DERMATOPATH TECHNICAL REPORT(Performed 05/04/2018) Results * XR SACROILIAC JOINTS 3+ VW (04/15/2022 4:02 PM CDT) Anatomical Region Laterality Modality Pelvis, Lower Extremity Radiogra phic Imaging 04/15/2022 4:20 PM CDT Impressions 04/15/2022 4:21 PM CDT IMPRESSION: Degenerative spondylolisthesis, grade 1, of both L4 upon L5 and L5 upon S1 secondary Facet arthropathy. > Interpreting Provider: Boston Cavanaugh MD on 04/15/2022 4:21 PM Narrative 04/15/2022 4:21 PM CDT PROCEDURE: ??XR LUMBAR SPINE 2 OR 3VW, XR SI JOINTS 3VW OR MORE, DATE/TIME OF EXAM: ??04/15/2022 4:16 PM, LOCATION ??[facility] INDICATION: M45.0: Ankylosing spondylitis of multiple sites in spine ([facility]) M46.1: Sacroiliitis, not elsewhere classified ([facility]) G47.01: Insomnia due to medical condition ADDITIONAL CLINICAL INFORMATION: Ordering Provider Reason For Exam: Technologist Note: Additional: ??Low back pain, buttock pain COMPARISON: None. FINDINGS: Degenerative changes and spondylolisthesis of L4 upon L5 measures 4 mm. L5 upon S1 spondylolisthesis measures 3.5 mm. Posterior spurring L3-4. Degenerative retrolisthesis of L2 upon L3 measures 3.2 mm. There is no compression deformity. Left lumbar curvature. Sacroiliac joint degenerative changes are moderate in fairly projecting spurs but no ankylosis. No fracture line evident through the sacral foramen. Both hips show degenerative changes left greater than right with subchondral changes and a broad spur on the left consistent with a moderate severity left hip arthrosis. Procedure Note Boston Cavanaugh MD - 04/15/2022 PROCEDURE: XR LUMBAR SPINE 2 OR 3VW, XR SI JOINTS 3VW OR MORE,DATE/TIME OF EXAM: 04/15/2022 4:16 PM, LOCATION [facility] INDICATION: M45.0: Ankylosing spondylitis of multiple sites in spine ([facility]) M46.1: Sacroiliitis, not elsewhere classified ([facility]) G47.01: Insomnia due to medical condition ADDITIONAL CLINICAL INFORMATION: Ordering Provider Reason For Exam: Technologist Note: Additional: Low back pain, buttock pain COMPARISON: None. FINDINGS: Degenerative changes and spondylolisthesis of L4 upon L5 measures 4 mm.L5 upon S1 spondylolisthesis measures 3.5 mm. Posterior spurring L3-4. Degenerative retrolisthesis of L2 upon L3 measures 3.2 mm. There is no compression deformity. Left lumbar curvature. Sacroiliac jointdegenerative changes are moderate in fairly projecting spurs but no ankylosis. No fracture line evident through the sacral foramen. Both hips show degenerative changes left greater than right with subchondral changes kelsey broad spur on the left consistent with a moderate severity left hip arthrosis. IMPRESSION: Degenerative spondylolisthesis, grade 1, of both L4 upon L5 and L5 uponS1 secondary Facet arthropathy. > Interpreting Provider: Boston Cavanaugh MD on 04/15/2022 4:21 PM Rob Jasso MD DIAGNOSTIC IMAGING O RDERABLES * XR LUMBAR SPINE 2 OR 3 VW (04/15/2022 4:00 PM CDT) Anatomical Region Laterality Modality Spine Radiographic Carlie ging 04/15/2022 4:20 PM CDT Impressions 04/15/2022 4:21 PM CDT IMPRESSION: Degenerative spondylolisthesis, grade 1, of both L4 upon L5 and L5 upon S1 secondary Facet arthropathy. > Interpreting Provider: Boston Cavanaugh MD on 04/15/2022 4:21 PM Narrative 04/15/2022 4:21 PM CDT PROCEDURE: ??XR LUMBAR SPINE 2 OR 3VW, XR SI JOINTS 3VW OR MORE, DATE/TIME OF EXAM: ??04/15/2022 4:16 PM, LOCATION ??[facility] INDICATION: M45.0: Ankylosing spondylitis of multiple sites in spine ([facility]) M46.1: Sacroiliitis, not elsewhere classified ([facility]) G47.01: Insomnia due to medical condition ADDITIONAL CLINICAL INFORMATION: Ordering Provider Reason For Exam: Technologist Note: Additional: ??Low back pain, buttock pain COMPARISON: None. FINDINGS: Degenerative changes and spondylolisthesis of L4 upon L5 measures 4 mm. L5 upon S1 spondylolisthesis measures 3.5 mm. Posterior spurring L3-4. Degenerative retrolisthesis of L2 upon L3 measures 3.2 mm. There is no compression deformity. Left lumbar curvature. Sacroiliac joint degenerative changes are moderate in fairly projecting spurs but no ankylosis. No fracture line evident through the sacral foramen. Both hips show degenerative changes left greater than right with subchondral changes and a broad spur on the left consistent with a moderate severity left hip arthrosis. Procedure Note Boston Cavanaugh MD - 04/15/2022 PROCEDURE: XR LUMBAR SPINE 2 OR 3VW, XR SI JOINTS 3VW OR MORE,DATE/TIME OF EXAM: 04/15/2022 4:16 PM, LOCATION [facility] INDICATION: M45.0: Ankylosing spondylitis of multiple sites in spine ([facility]) M46.1: Sacroiliitis, not elsewhere classified ([facility]) G47.01: Insomnia due to medical condition ADDITIONAL CLINICAL INFORMATION: Ordering Provider Reason For Exam: Technologist Note: Additional: Low back pain, buttock pain COMPARISON: None. FINDINGS: Degenerative changes and spondylolisthesis of L4 upon L5 measures 4 mm.L5 upon S1 spondylolisthesis measures 3.5 mm. Posterior spurring L3-4. Degenerative retrolisthesis of L2 upon L3 measures 3.2 mm. There is no compression deformity. Left lumbar curvature. Sacroiliac jointdegenerative changes are moderate in fairly projecting spurs but no ankylosis. No fracture line evident through the sacral foramen. Both hips show degenerative changes left greater than right with subchondral changes kelsey broad spur on the left consistent with a moderate severity left hip arthrosis. IMPRESSION: Degenerative spondylolisthesis, grade 1, of both L4 upon L5 and L5 uponS1 secondary Facet arthropathy. > Interpreting Provider: Boston Cavanaugh MD on 04/15/2022 4:21 PM Rob Jasso MD DIAGNOSTIC IMAGING O RDERABLES * DERMATOPATH TECHNICAL REPORT (05/04/2018 12:00 AM COMPUTER NUMERICAL CONTROL GRINDER) Case Report Dermatopathology Report ? Case: [id number] ? Authorizing Provider: ??Amada Luis MD ?Collected: ? 05/04/2018 12:00 AM ? Pathologist: ? Shirin Avendano MD ? Received: ?05/05/2018 06:43 AM ? Specimen: ?Skin, right arm ? 1:28 PM [facility] Clinical History [place] papule R/O DF vs BCC 1:28 PM [facility] Gross Description Specimen A: Received is one formalin filled container labeled with the patient's name and designated right arm. The specimen consists of a shave biopsy measuring 6x4x1 mm. Jar 0. [facility] performed the technical component only. 1:28 PM [facility] Embedded Images 1:28 PM [facility] DISCLAIMER An external and internal positive and negative controls are appropriate for the histochemical, immunohistochemical and immunofluorescence stain(s) in this case (if any), except where stated explicitly. The performance characteristics of the stain(s) cited in this report were developed and its performance characteristic determined by the Dermatopathology Laboratory at [facility]. These tests need not be, and therefore are not, approved by the [place] Food and Drug Administration. The tests are used for clinical purposes. 1:28 PM [facility] Pathology/Cytolog y TISSUE SPECIMEN FROM SKIN / Unknown 05/04/2018 05/05/2018 6:43 AM COMPUTER NUMERICAL CONTROL GRINDER Amada Luis MD LAB - PATHOLOGY/CYTO LOGY ORDERABLES DERMATOPATHOLOGY LABORATORY [facility] - Department of Dermatology [address] [place] [address], 5th Floor Lab [address] [phone] Care Teams Bridge/Structure Inspection Team Leader Relationship Specialty Start Date End Date Rostovtseva, Vibha Y, MD [address] [place] [address] PCP - General 11/07/17
--- OUTSIDE RECORDS SUMMARY | 2024-07-20 15:52 | XMS_ITS | Clinical Summary ---
Author Organization [address] Address [address] [place] [phone] Care Team Providers Care Epic Analyst Name Role Phone Bridget Hill MD Primary Care Provi marilia Allergies Active Allergy Reactions Criticality Noted Date [...] ANXIETY 30 tablet 4 025 Discontin ued(Alter yesenia therapy) Active Problems Problem Noted Date Diagnosed Date Situational anxiety 06/24/2024 Assessment & Plan (06/24/2024 3:27 PM X [employer]LECT[employer] WIREMAN): Chronic, persistent The patient does not want [...] 11/05/2022 Assessment & Plan (06/24/2024 3:26 PM X RAY ELECTRON[employer] WIREMAN): Chronic, stable Continue hydrochlorothiazide daily Positive TIERRA [...] Ophthalmology Assessment & Plan (05/04/2021 1:28 PM X RAY ELECTRON[employer] WIREMAN): Low risk for surgery Forms completed Call for questions or concerns Ankylosing spondylitis of multiple sites in spin e 05/04/2021 Assessment & Plan (11/11/2023 7:56 AM CDT): Chronic, persistent Managed by rheumatology Continue current regimen Assessment & Plan (01/31/2022 8:22 AM CDT): Chronic, stable Continue celebrex, gabapentin Assessment & Plan (05/04/2021 1:30 PM X RAY ELECTRON[employer] WIREMAN): david discontinued Continue supportive care Consider gabapetin [...] Plan (11/11/2023 7:46 AM CDT): Chronic stable Managed by Hematology Assessment & Plan (01/31/2022 8:21 AM CDT): yovani Perry Continue to follow with oncology Assessment & Plan (01/25/2021 3:39 PM CDT): Continue to follow with her furniture sales consultant Call for questions Iron deficiency anemia 10/16/2020 Assessment & Plan (11/11/2023 7:46 AM CDT): yovani Perry Continue to follow with Hematology Currently off iron Assessment & Plan (01/31/2022 8:21 AM CDT): Chronic stable Continue to follow with heme Assessment & Plan (10/16/2020 11:12 AM CDT): Consider referral to GI for EGD-? Gastritis Will refer back to her blood specialist Continue iron Monitor symptoms Call for questions or concerns Hot flashes 05/11/2019 Assessment & Plan (11/11/2023 7:56 AM CDT): Chronic stable Continue to monitor Assessment & Plan (05/11/2019 9:58 AM X RAY ELECTRON[employer] WIREMAN): Will do a trial of effexor Continue to dress in layers Drink cool liquids Avoid spicy foods, alcohol Follow up in 4 weeks Class 1 obesity due to exces s calories with serious comorbidity and body mass index (BMI) of 31.0 to 31.9 in adult 01/05/2019 Assessment & Plan (06/24/2024 3:28 PM X RAY ELECTRON[employer] WIREMAN): Chronic, stable BMI Follow-up includes: Continue healthy lifestyle changes . Assessment & Plan (11/11/2023 7:45 AM CDT): Chronic, slight progression BMI Follow-up includes: nutrition counseling. Assessment & Plan (08/20/2023 8:24 AM X RAY ELECT[employer] WIREMAN): BMI Follow-up includes: education provided. Assessment & [...] 02/02/2018 Assessment & Plan (06/24/2024 3:26 PM X RAY ELECTRON[employer] WIREMAN): Chronic, uncontrolled Will do a trial of trazodone 50 mg nightly Continue to work on healthy habits for sleep Update me in one month Assessment & Plan (11/11/2023 7:46 AM CDT): Chronic, stable Continue healthy habits for sleep Assessment & Plan (05/04/2021 1:31 PM X RAY ELECT[employer] WIREMAN): Nortriptyline discontinued Continue lorazepam as needed Consider [...] regimen Assessment & Plan (05/11/2019 9:58 AM X RAY ELECTRONICS WIREMAN): Labs ordered Continue current regimen Assessment & [...] 05/12/2012 0 07/20/2020 Overview (09/20/2016): OSTEOARTHROS NOS-L/LEG Encounters Date Type Department Care Team Description 07/02/2024 Orders Only [facility] [address] [place] [phone] Bridget Hill MD 06/24/2024 1:45 PM [employer] W[employer]MAN Telemedicine [facility] [address] [place] [phone] Bridget Hill MD Adjustment insomnia (Primary Dx); Situational anxiety; Elevated blood pressure reading in office without diagnosis of hypertension; Class 1 obesity due to excess calories with serious comorbidity and body mass index (BMI) of 31.0 to 31.9 in adult 05/10/2024 Letter (Out) [facility] [address] [place] [phone] 05/05/2024 Letter (Out) [facility] [address] [phone] 05/03/2024 Letter (Out) [facility] [address] [phone] 05/02/2024 Patient Message [facility] [address] [phone] Bridget Hill MD Triage Assistant from Last 3 Months Immunizations Name Administration Dates Next Due Hep B Vaccine 01/31/2022 Influenza, Quadrivalent, Spl it, Preservative Free, Intramuscular 05/17/2019 Influenza, Unspecified 03/16/2023(Deferr ed: Patient decision),05/27/2022(Deferred: Patient Refused),03/16/2021(Deferred: Patient Refused),03/16/2020(Deferred: Patient Refused) PPD TEST 09/03/2021,03/10/2020 Tdap 12/09/2016 ZOSTER Recombinant 01/31/2022 Surgical History Surgery Date Site/Laterality Comments KNEE ARTHROSCOPY 06/16/2011 - 06/15/2012 Arthroscopy knee HYSTERECTOMY 06/16/2008 - 06/15/2009 Hysterectomy JOINT REPLACEMENT 06/16/2013 - 06/15/2014 LASIK ROTATOR CUFF REPAIR 06/16/2017 - 06/15/2018 EYE SURGERY CATARACT EXTRACTION 03/16/2022 - 04/15/2022 Left FLUORO GUIDED ASPIRATION OR INJECTION LARGE JOINT LEFT 07/10/2022 Left KNEE ARTHROSCOPY W/ LATERAL RELEASE TOTAL HIP ARTHROPLASTY 03/12/2023 Left Medical History Medical History Date Comments Disorder of thyroid Thyroid dise ase Hx Other Medical Anemia, iron de ficiency Hx Other Medical positive TIERRA ab s. History of anemia 01/22/2018 History of vitamin D deficiency 08/25/2017 Hypothyroidism 10/23/2016 Insomnia 02/02/2018 Mixed stress and urge urinary incontinence 12/16 Pure hypercholesterolemia 02/02/2018 Arthritis Hypothyroidism Hematuria Anemia Presence of both artificial knee joints 2013 Visual impairment Cataract Migraines Abnormal EKG 03/18/2022 Varicella Family History Medical History Relation Name Comments Heart attack Brother Nic Arthritis Father Clarke Cancer Father Clarke Diabetes Father Lcarke Heart disease Father Clarke Hypertension Father Clarke Osteoarthritis Father Clarke Osteoarthriti s; Stroke Maternal Grandmother Yola Anemia Mother Gladys Hypothyroidism Mother Gladys Miscarriages / Stillbirths Mother Gladys Thyroid disease Mother Gladys Thyroid dise ase; Diabetes Other 1 Family history of Diabetes mellitus; Thyroid disease Other 2 Family histo ry of Thyroid disease; Heart disease Other 3 Family history of Heart disease; Other Sister 1 No history of L upus erythematosus; Thyroid disease Sister 2 Thyroid dise ase; Relation Name Status Comments Brother Nic Father Clarke Maternal Grandmother Yola Mother Gladys Other 1 Other 2 Other 3 Sister 1 Sister 2 Social History Tobacco Use Types Packs/Day Years [...] on file Legal Sex Female 10:53 AM X RAY ELECT[employer] WIREMAN Gender Identity Female 01/10/2020 7:05 PM CDT Sexual Orientation Straight 01/10/2020 7: 05 PM CDT Obstetrics History Last Filed Vital Signs Vital Sign Reading Time Taken Comments Blood Pressure 122/70 11/11/2023 7:29 AM CDT Pulse 62 11/11/2023 7:29 AM CDT Temperature 37.1 ??C (98.7 ??F) 11/11/2023 7:29 AM CD T Respiratory Rate 16 11/11/2023 7:29 AM CDT Oxygen Saturation 99% 11/11/2023 7:29 AM CDT Inhaled Oxygen Concentration - - Weight 83 kg (183 lb) 06/24/2024 3:27 PM X [employer] W[employer]MAN Height 162.6 cm (5' 4.02 ) 06/24/2024 3:27 PM CS T Body Mass Index 31.4 06/24/2024 3:27 PM X [employer] WIREMAN Plan of Treatment Health Maintenance Due Date Last Done Comments Zoster Vaccine (2 of 2) 03/28/2022 01/31/2022 Covid-19 Vaccine (3 - season) 2024 07/24/2021, 07/03/2021 Influenza Vaccine (#1) 2024 05/17/2019 Osteoporosis Screening-Bone Density Scan 04/25/2024 04/25/2022 Breast Cancer Screening-Mammogram 05/01/2024 05/01/2023, 04/25/2022, 03/16/2020, Additional history exists Regular Well Visit/Exam 18-64 11/10/2024 11/11/2023, 11/11/2023, 01/31/2022, Additional history exists Depression Screening 06/24/2025 06/24/2024, 06/24/2024, 11/11/2023, Additional history exists DTaP/Tdap/Td Vaccine (2 - Td or Tdap) 12/09/2026 12/09/2016 Colon Cancer Screening-Colonoscopy 12/08/2029 12/09/2019 Cervical Cancer Screening Discontinued 01/05/2019 Hepatitis C Screening Completed 05/11/2019 Colon Cancer Screening-CT Colonography Discontinued 12/09/2019 Colon Cancer Screening-DNA Stool Discontinued 12/09/2019 Colon Cancer Screening-FIT Discontinued 12/09/2019 Colon Cancer Screening-Sigmoidoscopy Discontinued 12/09/2019 Pneumococcal vaccine <65 Aged Out No longer eligible based on patient's age to complete this topic Procedures Procedure Name Priority Date/Time Associated Diagnosis Comments MAMMOGRAPHY Routine 05/01/2023 DEXA SCAN Routine 04/25/2022 COLONOSCOPY Routine 12/09/2019 HEPATITIS C ANTIBODY Routine 05/11/2019 10:45 AM X RAY ELECT[employer] WIREMAN Need for hepatitis C screening test [facility] PAP AND HPV MRNA E6/E7 REFLEX HPV 16,18/45 Routine 01/05/2019 12:15 PM CDT Encounter for well woman exam with routine gynecological exam from Last 3 Months or Most Recently Relevant to Health Maintenance Results * HM MAMMOGRAPHY (05/01/2023) Mammography Normal Historical Provider HEALTH MAINTENANCE Final Result * HM DEXA SCAN (04/25/2022) Result [facility] Historical Provider HEALTH MAINTENANCE Final Result * Colonoscopy (12/09/2019) Anatomical Region Laterality Modality Other Result [facility] Provider ENDOSCOPY PROCEDURES Jocelin l Result * Hepatitis C antibody (05/11/2019 10:45 AM X RAY ELECTRON[employer] WIREMAN) Hep C Ab NONREACT NONREACTIVE [facility] Comment: [employer] using ABDIRASHID (chemiluminescent immunoassay) technology. NONREACTIVE: Antibodies [...] method. Blood specimen (specimen) 05/11/2019 10:45 AM X RAY ELECTRON[employer] WIREMAN 05/11/2019 10:52 AM X RAY ELECTRON[employer] WIREMAN Narrative Resulting Agency Comment CLI Result [facility] Bridget Hill MD LAB MICROBIOLOGY - GENERAL ORDERABLES Final Result [address] [phone] * [facility] Pap and HPV mRNA E6/E7 Reflex HPV 16,18/45 (01/05/2019 12:15 PM CDT) CLINICAL INFORMATION: [facility] Comment:Routine exam LMP [facility] Comment:S/P HYSTERECTOMY Previous Pap [facility] Comment:INFORMATION NOT PROV IDED Prev. Bx [facility] Comment:INFORMATION NOT PROV IDED SOURCE: [facility] Comment: Vagina SWAB Pap, specimen adequacy [facility] Comment:[employer] [place] [employer] HPV interp [facility] Comment:Negative for intraep ithelial lesion or malignancy. COMMENTS [facility] Comment: This Pap test has been evaluated with computer assisted technology. [employer] SHERI [facility] Comment: NANETTE DOHERTY(ASCP) CT screening location: [place] [address] [place] [address] Comment [facility] Comment: EXPLANATORY NOTE: The Pap is a [...] High Risk E6/E7 Not Detected Not Detected [facility] Comment: This test was performed using the APTIMA HPV Assay ([employer] This assay detects E6/E7 viral messenger RNA (mRNA) from 14 high-risk HPV types (16,18,31,33,35,39,45,51,52,56,58,59,66,68). The analytical performance characteristics of this assay have been determined by [facility]. The modifications have not been cleared or approved by the FDA. This assay has been validated pursuant to the CLIA regulations and is used for clinical purposes. Swab 01/05/2019 12:1 5 PM CDT 01/06/2019 9:29 AM CDT Narrative [facility] - 01/08/2019 3:56 PM CDT FASTING: UNKNOWN Resulting Agency Comment Performing Organization Information: ?Site ID: [place] ?Name: [facility] ?Address: [address] [place] [address] ?Director: Tone Cedillo D.O., DENICE ?Site ID: ?Name: [facility] ?Address: [address] [place] [address] ?Director: Maria Esther Mayo Bridget Hill MD LAB CYTOLOGY ORDERA BLES Final Result [facility] [place], [place] [facility] [place] from Last 3 Months or Most Recently Relevant to Health Maintenance Insurance [employer] PPO PA [facility] Care Teams Epic Analyst Relationship Specialty Start Date End Date Bridget Hill MD [address] [place] [address] PCP - General Family Medicine 11/23/18
[2024-07-20 16:06] LABS: Basophils Percent Auto 0.3 % (0.2-1.2); Eosinophils Absolute Auto 0.2 K/mm3 (0-0.3); Eosinophils Percent Auto 3.7 % (0-4.4); Hematocrit 33.8 % (37.0-47.0); Hemoglobin 11.1 g/dL (12.0-15.0); Immature Granulocyte Absolute 0.01 K/mm3 (0.00-0.031); Immature Granulocyte Percent A 0.2 % (0-0.5); Lymphocytes Absolute Auto 1.57 K/mm3 (0.9-3.2); Lymphocytes Percent Auto 26.5 % (18.3-44.2); Mean Corpuscular HGB Conc 32.8 g/dl (32-36); Mean Corpuscular Hemoglobin 32.6 pg (26-34); Mean Corpuscular Volume 99.1 fl (80-100); Mean Platelet Volume 8.8 fl (7.4-10.4); Monocytes Absolute Auto 0.4 K/mm3 (0.1-0.6); Monocytes Percent Auto 6.7 % (2.6-8.5); Neutrophils Absolute Auto 3.7 K/mm3 (1.3-6.7); Neutrophils Percent Auto 62.6 % (45.5-73.1); Platelet Count Result 358 k/mm3 (150-375); Red Blood Count 3.41 M/mm3 (4.2-5.4); White Blood Count 5.9 K/mm3 (4.5-10.0)
[2024-07-20 16:53] LABS: Alanine Aminotransferase 52 U/L (6-35); Albumin Level 4.5 g/dL (3.5-5.1); Alkaline Phosphatase 104 U/L (38-126); Anion Gap 9 mmol/L (4-12); Aspartate Amino Transferase 61 U/L (14-36); Bilirubin,Total 0.5 mg/dL (0.2-1.3); Blood Urea Nitrogen 17 mg/dL (7-17); Calcium 9.7 mg/dL (8.4-10.2); Carbon Dioxide 26 mmol/L (22-30); Chloride 103 mmol/L (98-107); Estimated Glomerular Filt Rate > 60; Glucose 89 mg/dL (65-110); Lactate Dehydrogenase 212 U/L (120-246); Potassium 4.1 mmol/L (3.4-5.0); Sodium 138 mmol/L (137-145)
[2024-07-20 17:20] LABS: Iron 94 ug/dL (37-170)
[2024-07-20 17:35] LABS: Percent Iron Saturation 28 % (20-50)
[2024-07-20 18:07] LABS: Folic Acid > 20.0 ng/mL (2.76->20)
[2024-07-21 18:08] LABS: Protein, Total 6.7 g/dL (6.1-8.1)
[2024-07-22 20:09] LABS: Albumin 4.2 g/dL (3.8-4.8); Alpha 1 Globulin 0.3 g/dL (0.2-0.3); Alpha 2 Globulin 0.7 g/dL (0.5-0.9); Beta 1 Globulin 0.5 g/dL (0.4-0.6); Gamma Globulin 0.9 g/dL (0.8-1.7)
[2024-07-23 12:17] LABS: Methylmalonic Acid 141 nmol/L (69-390)
== END 2024-07-20 15:49 | disposition home or self-care (01) ==
PROVIDERS: PCP Family Medicine; Visit Provider Internal Medicine Hematology & Oncology
DX: D64.9 Anemia, unspecified (principal)
CPT/HCPCS: 36415; 80053; 82607; 82728; 82746; 83540; 83550; 83615; 83921; 84155; 84165; 84238; 84443; 85025

== ENCOUNTER 2024-08-21 10:06 | Outpatient (CLI) | payer OTHER, SELFPAY ==
--- NOTE | ~2024-08-21 | XR_ITS ---
Left foot Technique: AP and lateral views were obtained. Clinical History: Ankle sprain spondylitis Findings: No acute fracture or dislocation is seen. Osseous alignment is anatomic. There are scattere d degenerative changes of the interphalangeal joints of the toes. Plantar calcaneal spur present. Sof t tissues are unremarkable. Impression: Osteoarthritic changes, predominantly in the toes, as detailed above. Reviewed, dictated and finalized at location M. Impression: Osteoarthritic changes, predominantly in the toes, as detailed above.
--- NOTE | ~2024-08-21 | XR_ITS ---
AP and oblique views of the SI joints CLINICAL HISTORY: Ankle sprain spondylitis FINDINGS: There is minimal degenerative change of the SI joints. No sclerosis or erosive change. Left arthroplasty present. Right hip joint intact. Soft tissues are unremarkable. IMPRESSION: Minimal degenerative changes of the SI joints. Left hip arthroplasty. Reviewed, dictated and finalized at location .
--- NOTE | ~2024-08-21 | XR_ITS ---
Left Hand Technique: PA and lateral views were obtained. Clinical History: Ankylosing spondylitis Findings: No acute fracture or dislocation is seen. Osseous alignment is anatomic. There is mild dege nerative change of the interphalangeal joint of the thumb. There are mild degenerative changes scatte red at the interphalangeal joints of the fingers and at the first CMC joint.. Soft tissues are unrema rkable. Impression: Mild polyarticular osteoarthritis, as above. Reviewed, dictated and finalized at location M. Impression: Mild polyarticular osteoarthritis, as above.
--- NOTE | ~2024-08-21 | XR_ITS ---
Lumbosacral Spine: AP, oblique, and lateral views Clinical History: Pain Findings: The normal lordotic curve is maintained. No fracture evident. There is 6 mm anterolisthesis of L4 over L5. There is severe facet arthropathy throughout the lumbar spine. There is advanced dege nerative disc narrowing at L1-L2. There is moderate degenerative disc narrowing at L2-L3. The sacroil iac joints are normally outlined. Impression: 6 mm anterolisthesis of L4 over L5. Extensive, severe facet arthropathy throughout the lumbar spine. Degenerative disc change, as above. Reviewed, dictated and finalized at location M. Impression: 6 mm anterolisthesis of L4 over L5. Extensive, severe facet arthropathy throughout the lumbar spine. Degenerative disc change, as above.
--- NOTE | ~2024-08-21 | XR_ITS ---
Right foot Technique: AP and lateral views were obtained. Clinical History: Ankylosing spondylitis Findings: No acute fracture or dislocation is seen. Osseous alignment is anatomic. There are scattere d degenerative changes of the interphalangeal joints of the toes. Plantar calcaneal spur present. Sof t tissues are unremarkable. Impression: Polyarticular mild osteophytosis in the toes predominantly, as detailed above. Reviewed, dictated and finalized at location . Impression: Polyarticular mild osteophytosis in the toes predominantly, as detailed above.
--- NOTE | ~2024-08-21 | XR_ITS ---
Right Hand Technique: PA and lateral views were obtained. Clinical History: Ankylosing spondylitis Findings: No acute fracture or dislocation is seen. Osseous alignment is anatomic. There is moderate degenerative change of the second DIP joint. There is moderate to advanced degenerative change of the interphalangeal joint of the thumb. There are mild to moderate degenerative changes of the first CMC joint and first MCP joint. Soft tissues are unremarkable. Impression: Polyarticular osteoarthritis, as detailed above, worst involving the thumb. Reviewed, dictated and finalized at location M. Impression: Polyarticular osteoarthritis, as detailed above, worst involving the thumb.
== END 2024-08-21 10:07 | disposition home or self-care (01) ==
LOC: MICIMG 10:07
PROVIDERS: PCP Family Medicine; Visit Provider Internal Medicine
DX: M45.9 Ankylosing spondylitis of unspecified sites in spine (principal); M19.041 Primary osteoarthritis, right hand; M19.042 Primary osteoarthritis, left hand; M19.071 Primary osteoarthritis, right ankle and foot; M19.072 Primary osteoarthritis, left ankle and foot
CPT/HCPCS: 72110; 72202; 73120; 73620

== ENCOUNTER 2024-11-06 10:57 | Outpatient (CLI) | payer OTHER, SELFPAY ==
--- NOTE | ~2024-11-06 | XR_ITS ---
XR cervical spine 4-5V Ordering provider: [place], History: . Cervicalgia . Comparison: None. FINDINGS: VERTEBRAL BODIES: Normal height and alignment. No visible fracture or subluxation. The dens is intact . DISK SPACES: Narrowing at the level of C3-C4. Multilevel facet joint disease. Multilevel uncovertebra l joint osteoarthritic changes. No significant intervertebral foraminal narrowing. PARASPINOUS SOFT TISSUES: No prevertebral soft tissue swelling. IMPRESSION: No acute osseous abnormality cervical spine. Degenerative disc disease at the level of C3-C4. Multilevel facet joint disease. Reviewed, dictated and finalized at location A. IMPRESSION: No acute osseous abnormality cervical spine. Degenerative disc disease at the level of C3-C4. Multilevel facet joint disease .
== END 2024-11-06 10:58 | disposition home or self-care (01) ==
PROVIDERS: PCP Family Medicine; Visit Provider Family Medicine
DX: M50.31 Other cervical disc degeneration, high cervical region (principal)
CPT/HCPCS: 72050

== ENCOUNTER 2024-12-03 13:14 | Outpatient (CLI) | payer OTHER, SELFPAY ==
--- NOTE | ~2024-12-03 | MMUS_ITS ---
EXAMINATION: MM diagnostic warren BI w juan, US breast LT limited HISTORY: Breast pain TECHNIQUE: Additional 3-D tomosynthesis images of the breasts were performed and synthetic 2-D images were generated. CAD analysis was submitted and interpreted. High resolution Limited left breast ultr asound was performed. COMPARISON: Comparison to multiple prior studies sequentially, with oldest reviewed study dated 02/28. BREAST PARENCHYMAL COMPOSITION: Not dense: There are scattered areas of fibroglandular density. FINDINGS: MAMMOGRAPHIC FINDINGS: The breasts are stable without evidence for new mass, calcification or suspicious architectural disto rtion to suggest malignancy. ULTRASOUND: Limited left breast ultrasound: Normal heterogeneous echotexture without focal solid or cystic mass. IMPRESSION: 1. No evidence for malignancy in either breast. 2. Routine yearly screening mammogram and regular clinical breast examination are recommended. BI-RADS Category 1: Negative Reviewed, dictated and finalized at location A. IMPRESSION: 1. No evidence for malignancy in either breast. 2. Routine yearly screening mammogram and regular clinical breast examination a re recommended. BI-RADS Category 1: Negative
== END 2024-12-03 13:15 | disposition home or self-care (01) ==
LOC: ANHIMG 13:16
PROVIDERS: PCP Family Medicine; Visit Provider Family Medicine
DX: N64.4 Mastodynia (principal)
CPT/HCPCS: 76642; 77062; 77066; G0279

== ENCOUNTER 2024-12-15 10:21 | Outpatient (CLI) | payer OTHER, SELFPAY ==
--- NOTE | ~2024-12-15 | MR_ITS ---
MRI of the cervical spine Clinical History: Cervicalgia Technique: Axial T2-weighted and gradient images, and sagittal T1-weighted, T2-weighted, and STIR evaristo ges were acquired. Findings: There is no fracture in the cervical spine. There is 2 mm retrolisthesis of C3 over C4. No suspicious bone marrow signal abnormality seen. At C2-C3, there is no significant disc bulge or herniation. No spinal canal stenosis, cord compressio n, or neural foraminal narrowing. There is mild right facet arthropathy. At C3-C4, there is moderate degenerative disc narrowing. There is bilateral mild facet arthropathy, l eft worse than right. There is left neural foraminal narrowing. Right neural foramen preserved. Possi ble minimal canal stenosis without tomás cord compression. At C4-C5, there is minimal disc bulge with mild bilateral facet arthropathy. There is probable mild b ilateral neural foraminal narrowing, right worse than left. No tomás canal stenosis or cord compressi on. At C5-C6, there is minimal disc osteophyte complex with bilateral facet arthropathy. Probable minimal right neural foraminal narrowing. Left neural foramen preserved. No canal stenosis or cord compressi on. At C6-C7, there is bilateral facet arthropathy. No definite neural foraminal narrowing. No canal sten osis or cord compression. No abnormal signal seen in the spinal cord. Paravertebral soft tissues are unremarkable. Impression: Mild degenerative spondylosis overall, as detailed above. Reviewed, dictated and finalized at [facility]. Impression: Mild degenerative spondylosis overall, as detailed above.
== END 2024-12-15 10:22 | disposition home or self-care (01) ==
LOC: GOSHIMG 10:21
PROVIDERS: PCP Family Medicine; Visit Provider Nurse Practitioner Family
DX: M47.892 Other spondylosis, cervical region (principal)
CPT/HCPCS: 72141

== ENCOUNTER 2025-03-24 08:56 | Outpatient (CLI) | payer OTHER, SELFPAY ==
--- NOTE | ~2025-03-24 | DEXA_ITS ---
Bone Density Report Name: JAIR MARTINES Age: 64 Sex: Female Ethnicity: White Date of : 1960 Indication: postmenopausal; screening for osteoporosis; height loss; anorexia or bulimia; hysterectomy; Referring Provider: Liz, Bridget Study: Bone densitometry was performed. Exam Date: March 24, 2025 Accession number: [id number] Bone Density: Region BMD T-score Z-score Classification AP Spine(L1-L4) 1.303 2.3 4.0 Normal Femoral Neck (Right) 0.879 0.3 1.7 Normal Total Hip (Right) 0.961 0.2 1.3 Normal World Health Organization criteria for BMD impression classify patients as: Normal (T-score at or above -1.0), Osteopenia (T-score between -1.0 and -2.5), or Osteoporosis (T-score at or below -2.5). 10-year Fracture Risk: FRAX not reported because: All T-scores for Spine Total, Hip Total, Femoral Neck at or above -1.0 Previous Exams: -- Region Exam Age BMD T-score BMD Change BMD Change Date g/cm2 vs Baseline vs Previous -- AP Spine (L1-L4) 03/24/2025 64 1.303 2.3 -6.2%* -1.8%* 04/25/2022 61 1.327 2.5 -4.5%* -4.5%* 12/03/2012 51 1.389 3.1 Total Hip(Right) 03/24/2025 64 0.961 0.2 -11.1%* -6.9%* 04/25/2022 61 1.032 0.7 -4.5%* -4.5%* 12/03/2012 51 1.080 1.1 -- *Denotes significance at 95% confidence level, LSC for AP Spine = 0.022 g/cm2, LSC for Total Hip = 0.027 g/cm2 Clinical Information Provided by Patient: Has the following medical conditions: Anorexia or Bulimia, Hysterectomy Patient maximum height was 66 Menopause Age: 44 No regular weight bearing exercise Drinks caffeinated beverages Onset of menses at age 13 Number of children 4 Impression: The patient has normal bone mass. The BMD for the AP Spine (L1-L4) decreased, changing by -1.8% since the last DXA exam. The BMD for the Total Hip(Right) decreased, changing by -6.9% since the last DXA exam. Discussion: BONE DENSITY IS ABOVE THE MINIMUM DESIRABLE LEVEL AT ALL SKELETAL SITES TESTED. This patient?s bone mineral density is above the minimum desirable level (T-score -1.0 or better) at all sites measured. The patient should follow a healthful lifestyle (good nutrition with adequate calcium and vitamin D, and appropriate weight-bearing exercise). Follow-Up: Consider repeating this study in 3 to 4 years to reassess this patient's status, or sooner if there is some new clinical indication. Reported by: JAIRO on 03/24/2025 10:13:00 AM. Reviewed, dictated and finalized at location A.
== END 2025-03-24 08:57 | disposition home or self-care (01) ==
LOC: MICIMG 08:57
PROVIDERS: PCP Family Medicine; Visit Provider Family Medicine
DX: Z78.0 Asymptomatic menopausal state (principal); Z13.820 Encounter for screening for osteoporosis
CPT/HCPCS: 77080